=== PATIENT | female | born 1980 | race Caucasian/White ===

== ENCOUNTER 2020-09-23 14:11 | Emergency (ER) | payer OTHER, SELFPAY ==
--- NOTE | 2020-09-23 14:20 | ED.FEMALEGU ---
HPI - Female Genitourinary General Chief complaint: Urogenital-Female Stated complaint: uti Time Seen by Provider: 09/23/20 14:20 Source: patient and RN notes reviewed Mode of arrival: ambulatory Limitations: no limitations History of Present Illness HPI Narrative: 40-year-old female presents to the [facility] with urinary symptoms. Patient states that she has had abnormal smelling urine and its been cloudy. States she has had external burning. Denies frequency or urgency. Denies any flank pain, CVA tenderness, abdominal pain, nausea, vomiting or diarrhea. Denies any fevers. Denies any chances of a STD. MD elicited complaint: UTI Related Data Allergies Allergy/AdvReac Type Severity Reaction Status Date / Time doxycycline Allergy Unknown RASH Verified 09/23/20 14:33 Review of Systems Review of Systems: All systems reviewed & are unremarkable except as noted in HPI and below Constitutional: Constitutional: Reports no additional constitutional complaints, Denies chills and Denies fatigue Eyes: Eyes: Reports no additional eye complaints ENT: Reports system reviewed and no additional complaints, except as documented and Denies sore throat Cardiovascular: Cardiovascular: Reports no additional cardiovascular complaints and Denies chest pain Respiratory: Respiratory: Reports no additional respiratory complaints, Denies cough, Denies dyspnea and Denies wheezing Gastrointestinal: Gastrointestinal: Reports no additional gastrointestinal complaints, Denies abdominal pain, Denies nausea and Denies vomiting Genitourinary: Genitourinary: Reports as per HPI, Denies nocturia, Reports dysuria, Denies pelvic pain, Denies flank pain, Denies urinary incontinence and Denies vaginal discharge Musculoskeletal: Musculoskeletal: Reports no additional musculoskeletal complaints, Denies back pain, Denies arthralgias, Denies joint swelling and Denies muscle cramps Integumentary/Breasts: Skin/Breast: Reports system reviewed and no additional complaints, except as docu Neurologic: Reports system reviewed and no additional complaints, except as documented Psychiatric: Psychiatric: Reports no additional psychiatric complaints Allergic/Immunologic: Allergic/Immunologic: Reports no additional allergic/immunologic complaints, Denies lip swelling, Denies throat swelling, Denies tongue swelling and Denies wheezing PMFSH Surgical History Surgical History History of orthopedic surgery Social History Social History Gender identity (if verbalized by the patient): Female Comments At the time of my signature, I reviewed and agree with the nursing past medical, surgical, social, and family history. There is no relevant family history pertinent to the patient complaint. Exam Const: General: healthy appearing, no acute distress and alert Nutritional Appearance: well nourished Orientation/consciousness: patient oriented x3 Limitations: no limitations HENMT: Head: normal to inspection Eyes: General: appearance normal, both eyes and all related structures Conjunctivae: conjunctivae normal Pupils: Equal, round and reactive pupils present Neck: Neck: normal visual inspection, no lymphadenopathy and no meningeal signs Chest: Chest palpation & inspection: normal inspection of the chest and abnormal inspection of the chest Resp: Effort & Inspection: normal respiratory effort and no use of accessory muscles Auscultation: clear to auscultation bilaterally, no crackles, no rales, no rhonchi and no wheezes Cardio: Rate: regular rate Rhythm: regular rhythm Back/Spine/Pelvis: Back: no CVA tenderness Skin: General skin exam: normal color Rashes: no rashes Wounds: no wounds Neuro: General: patient oriented x3, moves all extremities, no meningeal signs and no focal motor deficits Speech: normal speech Gait exam (Neuro): Normal gait present Extrem: General:
[2020-09-23 14:21] VITALS: BP 110/76; PULSE 94; RESP 16; TEMP 36.3; O2SAT 99
== END 2020-09-23 14:38 | disposition home or self-care (01) ==
PROVIDERS: Emergency Provider Nurse Practitioner
DX: R30.0 Dysuria (principal)
CPT/HCPCS: 81003; 87086; 87088; 99213; G0463

== ENCOUNTER 2020-12-15 10:56 | Emergency (ER) | payer OTHER, SELFPAY ==
[2020-12-15 11:06] VITALS: BP 99/70; PULSE 85; RESP 16; TEMP 36.9; O2SAT 98
--- NOTE | 2020-12-15 11:18 | ED.URI ---
HPI - URI/Sore Throat General Chief Complaint: Upper Respiratory Infection Stated Complaint: sinus infection Time Seen by Provider: 12/15/20 11:18 Source: patient Mode of arrival: ambulatory Limitations: no limitations History of Present Illness HPI Narrative: Julianne Engel is a 40 yo female with no PMH who [facility] with complaints of ear pain on the right throat pain headache congestion and generally just not feeling well since Friday she did do a rapid test from [employer] or [facility] at home and that was negative. She has been feverish and just not getting better over last 5 days Related Data Allergies Allergy/AdvReac Type Severity Reaction Status Date / Time doxycycline Allergy Unknown RASH Verified 09/23/20 14:33 Review of Systems Review of Systems: CONSTITUTIONAL: Possible fever, has chills, sweats. EYES: Denies visual changes, redness, discharge. ENT: Denies rhinorrhea, has congestion, has sore throat, right otalgia. CARDIOVASCULAR: Denies chest pain, palpitations, edema. RESPIRATORY: Denies dyspnea, wheezing, has dry cough GASTROINTESTINAL: Denies abdominal pain, nausea, vomiting, diarrhea. GENITOURINARY: Denies dysuria, hematuria, abnormal discharge SKIN: Denies rash or itching. NEUROLOGIC: Denies numbness, or focal weakness. PSYCHIATRIC: Denies anxiety or depression. [facility] Past Medical History Medical History (Updated 12/15/20 @ 11:54 by Gina Moore CNP) No acute medical problems Surgical History Surgical History History of orthopedic surgery Social History Social History (Updated 12/15/20 @ 11:31 by Gina Moore CNP) Alcohol intake: current Gender identity (if verbalized by the patient): Female Comments At time of signature, I agree with nursing past medical, surgical, social and family history. There is no relevant family history pertinent to the presenting complaint. Exam Narrative: GENERAL: This is a well-nourished, well-developed patient, in moderate distress. Laying on stretcher states feels terrible HEAD: normocephalic, atraumatic. EYES: Sclera clear/white. Vision is grossly intact. EARS: External ears normal, auditory canals clear and without drainage, TMs normal without perforation. Hearing grossly intact. NOSE: External nose normal without nasal discharge, nares without redness, no rhinorrhea. THROAT: Mucous membranes moist, posterior pharynx NECK: Neck supple, non-tender CARDIOVASCULAR: Regular rate and rhythm without murmurs, gallops, or rubs. RESPIRATORY: Clear to auscultation. Breath sounds equal bilaterally. No wheezes, rales, or rhonchi. GASTROINTESTINAL: Abdomen soft, non-tender, SKIN: warm, intact with no suspicious lesions or rash, good texture and turgor. NEURO: awake, alert, and oriented to person, place and time. There were no obvious focal neurologic abnormalities. Steady gait EXTREMITIES: Normal range of motion. BACK: Nontender without deformity Course Course Emergency Course: Patient comes in with generalized upper respiratory symptoms including fever malaise headache runny nose and ear pain She has done a Covid test at home but will we will repeat that today as well as flu and strep-all 3 tests are negative Patient will be treated with steroids, next , , Ibuprofen 800 mg 3 times daily as needed, tessalon and mucinex Vital Signs Vital signs: Vital Signs Temperature 98.4 F 12/15/20 11:06 Pulse Rate 85 12/15/20 11:06 Respiratory Rate 16 12/15/20 11:06 Blood Pressure 99/70 L 12/15/20 11:06 Pulse Oximetry 98 12/15/20 11:06 Temperature 98.4 F 12/15/20 11:06 Pulse Rate 85 12/15/20 11:06 Respiratory Rate 16 12/15/20 11:06 Blood Pressure 99/70 L 12/15/20 11:06 Pulse Oximetry 98 12/15/20 11:06 MDM - URI/Sore Throat Differential Diagnosis Differential diagnosis: Likely upper respiratory infection, sinusitis, viral infection, influenza, pharyngitis and other
== END 2020-12-15 12:08 | disposition home or self-care (01) ==
PROVIDERS: Emergency Provider Nurse Practitioner
DX: J06.9 Acute upper respiratory infection, unspecified (principal); Z20.822 Contact with and (suspected) exposure to COVID-19
CPT/HCPCS: 87081; 87426; 87804; 87880; 99213; C9803; G0463

== ENCOUNTER 2021-07-01 15:33 | Emergency (ER) | payer OTHER, SELFPAY ==
--- NOTE | 2021-07-01 15:34 | ED.UPPEXIN ---
HPI - Extremity Injury (Upper) General Chief Complaint: Extremity Injury, Upper Stated Complaint: left shoulder pain Time Seen by Provider: 07/01/21 15:34 Source: patient Mode of arrival: ambulatory Limitations: no limitations History of Present Illness HPI narrative: Ms. Salgado is a 41-year-old female patient presenting to the clinic today with complaints of left shoulder pain x 2-3 days. She reports no known injury however she has pain into the collarbone to the anterior and posterior shoulder, denies any numbness or tingling. Patient has a history of having this shoulder dislocated. Related Data Allergies Allergy/AdvReac Type Severity Reaction Status Date / Time doxycycline Allergy Unknown RASH Verified 09/23/20 14:33 Review of Systems Review of Systems: Pertinent positives per HPI. Patient denies any fever, chills, rash, headache, visual changes, dizziness, cough, runny nose, sore throat, shortness of breath, chest pain, palpitations, nausea, vomiting, diarrhea, constipation, abdominal pain, or any urinary issues. [facility] Past Medical History Medical History No acute medical problems Surgical History Surgical History History of orthopedic surgery Social History Social History Alcohol intake: current Gender identity (if verbalized by the patient): Female Comments At the time of my signature, I reviewed and agree with the nursing past medical, surgical, social, and family history. There is no relevant family history pertinent to the patient complaint. Exam Narrative: General: Well-developed, well nourished, in no apparent distress Head: Normocephalic, atraumatic. Cardio: Regular rate and rhythm, s1 and s2 normal, no murmur appreciated. Resp: Clear to auscultation bilaterally, no rhonchi, rales, wheezing or rubs. Musculoskeletal: No deformity, non-tender to palpation, pain with raising arm above head laterally and anteriorly, limited posterior reach due to pain and is having spasming near the rhomboid musculature, negative drop arm test, negative empty can and full can test, muscle strength strong and equal, bilateral handgrip strong and equal, peripheral pulse strong, no edema, no cyanosis, normal gait and station Course Course Emergency Course: Portions of this record may have been created with voice recognition software. Level of Care: Express Care Visit Vital Signs Vital signs: Vital Signs Temperature 36.7 C 07/01/21 15:39 Pulse Rate 73 07/01/21 15:39 Respiratory Rate 18 07/01/21 15:39 Blood Pressure 123/77 07/01/21 15:39 Pulse Oximetry 100 07/01/21 15:39 Temperature 36.7 C 07/01/21 15:39 Pulse Rate 73 07/01/21 15:39 Respiratory Rate 18 07/01/21 15:39 Blood Pressure 123/77 07/01/21 15:39 Pulse Oximetry 100 07/01/21 15:39 Vital signs reviewed MDM - Extremity Injury (Upper) MDM Narrative Medical decision making narrative: At the time of assessment patient is resting comfortably on the exam table. She reports pain to the left anterior collarbone/chest wall and pain to the left posterior collarbone chest wall and into the shoulder. No deformity noted in the shoulder and is able to move joint appropriately however she has pain with raising her arm above her head and attempting to do a posterior reach. Shoulder is easily palpable without pain and is in place in the joint. I suspect the patient has a muscle strain to the shoulder/collarbone musculature. Shoulder exercises discussed with patient. We will give her an arm sling and give her prescription for prednisone and a muscle relaxer. She was given Toradol 60 mg IM in the clinic today. Discharge instructions were reviewed with patient she voiced understanding Discharge Plan Discharge Clinical Impression: Muscle strain of left shoul
[2021-07-01 15:39] VITALS: BP 123/77; PULSE 73; RESP 18; TEMP 36.7; O2SAT 100
[2021-07-01] MEDS: KETOROLAC (*BKC) 60 MG/2 ML VIAL IM (15:59)
== END 2021-07-01 16:26 | disposition home or self-care (01) ==
LOC: EXPCOLL 15:36
PROVIDERS: Emergency Provider Nurse Practitioner Family
DX: S46.912A Strain of unspecified muscle, fascia and tendon at shoulder and upper arm level, left arm, initial encounter (principal); X58.XXXA Exposure to other specified factors, initial encounter
CPT/HCPCS: 96372; 99213; A4565; G0463; J1885

== ENCOUNTER 2022-07-28 10:02 | Emergency (ER) | payer OTHER, SELFPAY ==
[2022-07-28 10:02] VITALS: BP 122/71; PULSE 75; RESP 16; TEMP 36.4; O2SAT 100
--- NOTE | 2022-07-28 10:18 | ED.GENADULT ---
HPI - General Adult General Chief complaint: Allergic Reaction Stated complaint: tooth ache Time Seen by Provider: 07/28/22 10:06 History of Present Illness HPI narrative: Julianne Salgado is a 42 y/o female who presents with reports of being on amoxicillin for 3 days for a tooth infection and she started to notice itching to her left hand/left arm yesterday. She slept with it elevated on a pillow and she woke up with her arm swollen and more irritated. She reports similar allergic reaction to doxycycline and she thinks she might be allergic to amoxicillin now too. Denies shortness of breath/ difficulty swallowing/ tongue swelling/ throat swelling. She reports her toothache is feeling better today. Related Data Allergies Allergy/AdvReac Type Severity Reaction Status Date / Time amoxicillin Allergy Mild itching Verified 07/28/22 10:28 doxycycline Allergy Unknown RASH Verified 07/28/22 10:28 Review of Systems Review of Systems: CONSTITUTIONAL: Denies fever, chills, or sweats. EYES: Denies visual changes, redness, or discharge. ENT: Denies rhinorrhea, congestion, sore throat toothache to the right lower that is improving since being on amoxicillin for the past 3 days. CARDIOVASCULAR: Denies chest pain, palpitations, or edema. RESPIRATORY: Denies cough or dyspnea. GASTROINTESTINAL: Denies abdominal pain, nausea, vomiting, or diarrhea. GENITOURINARY: Denies dysuria or hematuria. SKIN: Denies rash or itching. MUSCULOSKELETAL: left arm itching/ irritation/ swelling NEUROLOGIC: Denies headache, numbness, dizziness, or weakness. PSYCHIATRIC: Denies anxiety or depression. PMFSH Past Medical History Medical History No acute medical problems Surgical History Surgical History History of orthopedic surgery Social History Social History Alcohol intake: current Gender identity (if verbalized by the patient): Female Exam Narrative: GENERAL: Well-appearing, well-nourished, and in no acute distress. HEAD: Normocephalic, atraumatic. EYES: PERRLA and EOMI. ENT: Nares clear, no rhinorrhea or epistaxis. Mucous membranes moist. Oropharynx without tonsillar hypertrophy exudate or other lesions. NECK: Supple. No adenopathy or masses. No carotid bruits or JVD CHEST: Clear to auscultation. No respiratory distress. No wheezes rales or rhonchi HEART: Regular rate and rhythm. No murmur heard. Normal peripheral pulses. ABDOMEN: Soft, nontender, nondistended, normal active bowel sounds. EXTREMITIES: Normal range of motion. No edema. SKIN: Warm, dry, Left arm noted to have swelling/ irritation/erythema/ pulses present and strong/ normal cap refill. NEURO: No focal deficits. Alert and oriented x3. PSYCH: Normal mood and affect. Course Vital Signs Vital signs: Vital Signs Temperature 36.4 C L 07/28/22 10:02 Pulse Rate 75 07/28/22 10:02 Respiratory Rate 16 07/28/22 10:02 Blood Pressure 122/71 07/28/22 10:02 Pulse Oximetry 100 07/28/22 10:02 Oxygen Delivery Room Air 07/28/22 10:02 Temperature 36.4 C L 07/28/22 10:02 Pulse Rate 75 07/28/22 10:02 Respiratory Rate 16 07/28/22 10:02 Blood Pressure 122/71 07/28/22 10:02 Pulse Oximetry 100 07/28/22 10:02 Oxygen Delivery Room Air 07/28/22 10:02 Vitals reviewed by me. Medical Decision Making MDM Narrative Medical decision making narrative: On exam pt is resting on stretcher in no acute distress. RR even unlabored Lung sounds clear - sating 100% on RA> She is noted to have swelling to her left arm/ left hand - pulses present/ color normal for patient. She was out in the sun yesterday and did get a little burnt. Patient reports she had similar reaction of itching with doxycycline - the only new medication she has had is amoxicillin Concern for : allergic reaction/ cellulitis/
[2022-07-28] MEDS: LORATADINE 10 MG TABLET PO (10:29)
[2022-07-28] MEDS: FAMOTIDINE 20 MG TABLET PO (10:29)
[2022-07-28] MEDS: predniSONE 40 MG, predniSONE 10 MG 50 MG PO (10:29)
== END 2022-07-28 12:01 | disposition home or self-care (01) ==
PROVIDERS: Emergency Provider Nurse Practitioner Family; PCP Nurse Practitioner Family
DX: L50.0 Allergic urticaria (principal); T36.0X5A Adverse effect of penicillins, initial encounter; K04.7 Periapical abscess without sinus
CPT/HCPCS: 99283; A9270; J7512

== ENCOUNTER 2022-12-12 11:04 | Outpatient (CLI) | payer OTHER, SELFPAY ==
--- NOTE | ~2022-12-12 | MMUS_ITS ---
EXAMINATION: MM diag hao implant BI w renee, US breast RT limited HISTORY: Right breast pain TECHNIQUE: Craniocaudal, mediolateral, and mediolateral oblique 3-D tomosynthesis images with implant displacement of the breasts were performed and synthetic 2-D images were generated. Craniocaudal, m ediolateral oblique, and mediolateral views of the breasts without implant displacement were obtained using full field digital mammography. CAD analysis was submitted and interpreted. High resolution li mited right breast ultrasound was performed. COMPARISON: 04/03/2016 BREAST PARENCHYMAL COMPOSITION: There are scattered areas of fibroglandular density. FINDINGS: MAMMOGRAPHIC FINDINGS: No suspicious mass, calcification, or architectural distortion are identified in either breast to sug gest malignancy. There has been no suspicious interval change. No mammographic correlate is identifie d for the patient's reported right breast pain. ULTRASOUND: There is a 1.2 x 0.4 cm oval, circumscribed, parallel, hypoechoic mass with posterior acoustic enhanc ement and no internal vascularity at the 10:00 location, 7 cm from the nipple. There are multiple sim ple cysts in the upper outer quadrant of the right breast. Benign appearing right axillary lymph node s are noted. IMPRESSION: 1. No specific mammographic or sonographic correlate is identified for the patient's reported right b reast pain. Further evaluation at this time should be based on clinical assessment. Continued follow- up physical examination is recommended. 2. Recommend 6 month follow-up targeted ultrasound for probably benign sonographically detected mass at the 10:00 location 7 cm from the nipple. BI-RADS category 3, probably benign findings. Reviewed, dictated and finalized at location A. IMPRESSION: 1. No specific mammographic or sonographic correlate is identified for the jefe ent's reported right breast pain. Further evaluation at this time should be bas ed on clinical assessment. Continued follow-up physical examination is recommen ded. 2. Recommend 6 month follow-up targeted ultrasound for probably benign sonograp hically detected mass at the 10:00 location 7 cm from the nipple. BI-RADS category 3, probably benign findings.
== END 2022-12-12 11:05 | disposition home or self-care (01) ==
PROVIDERS: PCP Nurse Practitioner Family; Visit Provider Nurse Practitioner Family
DX: R92.8 Other abnormal and inconclusive findings on diagnostic imaging of breast (principal)
CPT/HCPCS: 76642; 77062; 77066; G0279

== ENCOUNTER 2023-09-17 12:55 | Emergency (ER) | payer OTHER, SELFPAY ==
--- NOTE | ~2023-09-17 | XR_ITS ---
EXAMINATION: XR foot RT min 3V DATE: 09/17/2023 13:08 INDICATION: Right foot pain and dorsal swelling post injury TECHNIQUE: Dorsoplantar, two oblique and lateral views of the right foot were obtained. COMPARISON: None. FINDINGS: Alignment is normal. No fracture. 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 Moderate size plantar calcaneal spur. Soft tis sues are unremarkable. IMPRESSION: 1. No acute osseous abnormality. Reviewed, dictated and finalized at location A.
--- NOTE | ~2023-09-17 | XR_ITS ---
XR ankle RT min 3V Ordering provider: Myrtle Méndez APRN History: . right ankle pain, swelling, patient states it popped . Comparison: None. FINDINGS: BONES: No acute fracture or dislocation. Osteochondral defect seen in the medial aspect of the talus bone. Osteoid osteoma is less likely. Calcaneal spur. JOINT SPACES: Normal. SOFT TISSUES: Normal. IMPRESSION: No acute osseous abnormality of the right ankle. Osteochondral defect seen in the medial aspect of the talus dome. Reviewed, dictated and finalized at location A.
[2023-09-17 12:57] VITALS: BP 114/69; PULSE 73; RESP 20; TEMP 36.4; O2SAT 100
--- NOTE | 2023-09-17 14:33 | ED.GENADULT ---
HPI - General Adult General Chief complaint: Extremity Injury, Lower Stated complaint: right foot pain Time Seen by Provider: 09/17/23 13:19 History of Present Illness HPI narrative: Julianne Salgado is a 43 y/o female who presents with reports stepping off of the pool table and she felt a pop to the top of her right ankle and having pain with ambulation Related Data Allergies Allergy/AdvReac Type Severity Reaction Status Date / Time amoxicillin Allergy Mild itching Verified 09/17/23 12:58 doxycycline Allergy Unknown RASH Verified 09/17/23 12:58 Review of Systems Review of Systems: All systems reviewed & are unremarkable except as noted in HPI and below PMFSH Past Medical History Medical History No acute medical problems Surgical History Surgical History History of orthopedic surgery Social History Social History Alcohol intake: current Gender identity (if verbalized by the patient): Female Exam Narrative: GENERAL: Well-appearing, well-nourished, and in no acute distress. HEAD: Normocephalic, atraumatic. EYES: PERRLA and EOMI. ENT: Nares clear, no rhinorrhea or epistaxis. Mucous membranes moist. Oropharynx without tonsillar hypertrophy exudate or other lesions. NECK: Supple. No adenopathy or masses. No carotid bruits or JVD CHEST: Clear to auscultation. No respiratory distress. No wheezes rales or rhonchi HEART: Regular rate and rhythm. No murmur heard. Normal peripheral pulses. ABDOMEN: Soft, nontender, nondistended, normal active bowel sounds. EXTREMITIES: Normal range of motion. + swelling to the right ankle and swelling noted to the medial / lateral ankle and the proximal dorsum aspect of the right foot, pedal pulses intact, + pain with palpation to the medial ankle SKIN: Warm, dry, no rash. NEURO: No focal deficits. Alert and oriented x3. PSYCH: Normal mood and affect. Course Vital Signs Vital signs: Vital Signs Temperature 36.4 C 09/17/23 12:57 Pulse Rate 73 09/17/23 12:57 Respiratory Rate 20 09/17/23 12:57 Blood Pressure 114/69 09/17/23 12:57 Pulse Oximetry 100 09/17/23 12:57 Temperature 36.4 C 09/17/23 12:57 Pulse Rate 73 09/17/23 12:57 Respiratory Rate 20 09/17/23 12:57 Blood Pressure 114/69 09/17/23 12:57 Pulse Oximetry 100 09/17/23 12:57 Medical Decision Making MDM Narrative Medical decision making narrative: Right ankle Normal range of motion. + swelling to the right ankle and swelling noted to the medial / lateral ankle and the proximal dorsum aspect of the right foot, pedal pulses intact, + pain with palpation to the medial ankle Concern for fracture vs Sprain Will check XR ,she denies wanting anything for pain XR Foot X-Ray 09/17/23 13:23 IMPRESSION: 1. No acute osseous abnormality. Ankle X-Ray 09/17/23 14:35 IMPRESSION: No acute osseous abnormality of the right ankle. Right ankle shows Osteochondral defect will d/c home with obie wrap / crutches / DIAL therapy orthopedic referral Return precautions provided Vital Signs Vital Signs: Vital Signs Temperature 36.4 C 09/17/23 12:57 Pulse Rate 73 09/17/23 12:57 Respiratory Rate 20 09/17/23 12:57 Blood Pressure 114/69 09/17/23 12:57 Pulse Oximetry 09/17/23 12:57 Temperature 36.4 C 09/17/23 12:57 Pulse Rate 73 09/17/23 12:57 Respiratory Rate 20 09/17/23 12:57 Blood Pressure 114/69 09/17/23 12:57 Pulse Oximetry 09/17/23 12:57 vitals reviewed by me. Lab Data Lab results reviewed: Yes I reviewed the patient's lab results. Imaging Data Attestation: I personally reviewed and interpreted this imaging study as follows: My impression: Impressions Foot X-Ray 09/17/23 13:23
== END 2023-09-17 15:36 | disposition home or self-care (01) ==
PROVIDERS: Emergency Provider Nurse Practitioner Family; PCP Nurse Practitioner Family
DX: M21.969 Unspecified acquired deformity of unspecified lower leg (principal); S93.401A Sprain of unspecified ligament of right ankle, initial encounter; S96.911A Strain of unspecified muscle and tendon at ankle and foot level, right foot, initial encounter; X50.0XXA Overexertion from strenuous movement or load, initial encounter
CPT/HCPCS: 73610; 73630; 99283

== ENCOUNTER 2023-11-24 11:43 | Outpatient (CLI) | payer OTHER, SELFPAY ==
--- NOTE | ~2023-11-24 | MMUS_ITS ---
EXAMINATION: MM diag hao implant BI w renee, US breast BI limited HISTORY: Bilateral pain/palpable concern TECHNIQUE: 3-D tomosynthesis images of the bilateral breasts were performed and synthetic 2-D images were generated. CAD analysis was submitted and interpreted. High resolution limited bilateral breast ultrasound was performed. COMPARISON: 12/12/2022, 04/03/2016 BREAST PARENCHYMAL COMPOSITION:Dense: The breasts are extremely dense, which lowers the sensitivity o f mammography. FINDINGS: MAMMOGRAPHIC FINDINGS: Parenchymal pattern of the breasts is unremarkable. No suspicious mass lesion or distortion seen. David ateral breast implants are present. No suspicious parenchymal calcifications. ULTRASOUND: At the 10:00 position right breast, 7 cm from the nipple, there is a stable 1.0 x 0.9 x 0.4 cm wire t wang tall roughly ovoid mildly heterogeneous solid mass with posterior through transmission. This is l ikely benign, stable from prior exam. At the left breast area of concern, involving the 8:00, 9:00, and 10:00 positions, no sonographic abn ormality seen. No solid or cystic lesion evident in these regions. IMPRESSION: No mammographic evidence for malignancy. Stable 10 mm mass at the 10:00 position right breast, similar to the nipple. No sonographic correlate seen at the left breast area of concern from the 8:00-10:00 positions. BI-RADS Category 2: Benign finding(s). Reviewed, dictated and finalized at location . IMPRESSION: No mammographic evidence for malignancy. Stable 10 mm mass at the 10:00 position right breast, similar to the nipple. No sonographic correlate seen at the left breast area of concern from the 8:00- 10:00 positions. BI-RADS Category 2: Benign finding(s).
== END 2023-11-24 11:44 | disposition home or self-care (01) ==
PROVIDERS: PCP Nurse Practitioner Family; Visit Provider Nurse Practitioner Family
DX: R92.8 Other abnormal and inconclusive findings on diagnostic imaging of breast (principal)
CPT/HCPCS: 76642; 77062; 77066; G0279

== ENCOUNTER 2024-11-18 12:50 | Outpatient (CLI) | payer OTHER, SELFPAY ==
--- OUTSIDE RECORDS SUMMARY | 2024-11-18 14:31 | XMS_ITS | Clinical Summary ---
Author Organization [facility] Address [address], [address] [address] Phone Care Team Providers Care Teaching Manager Name Role Phone Familia Mariano MD Primary Care Provider [phone] Chris Esparza DO Unavailable [phone] Allergies No known active allergies Medications polyethylene glycol (MIRALAX) Powder Mix the entire bottle with 64 oz of a clear liquid. Use as directed by the office for colonoscopy prep. 255 g 0 6 Active Bismuth 262 MG Chewable Tablet 3 PO QID FOR 10 DAYS 120 Tab 0 6 Active metroNIDAZOLE (FLAGYL) 250 MG Tablet TAKE 1.5 TABS PO QID FOR 10 DAYS 60 Tab 0 6 Active doxycycline hyclate (VIBRAMYCIN) 100 MG Capsule TAKE ONE TAB BID FOR 10 DAYS 20 Cap 0 6 Active omeprazole (PRILOSEC) 20 MG CAPSULE DELAYED RELEASE TAKE ONE BID 20 Cap 0 6 Active polyethylene glycol (MIRALAX) Powder Use entire 255g bottle with 64oz of clear liquid as directed for colonoscopy prep. 255 g 0 6 Active Family History Medical History Relation Name Comments Colon Cancer Father Lung Cancer Mother Relation Name Status Comments Father Mother Social History Tobacco Use Types Packs/Day Years Used Date Smoking Tobacco: Former Cigarettes 1 3 Smokeless Tobacco: Never Alcohol Use Standard Drinks/Week Comments No 0 (1 standard drink = 0.6 oz pur e alcohol) Comments Unknown Sex and Gender Information Value Date Recorded Sex Assigned at Not on file Legal Sex Female 3:24 PM CDT Gender Identity Not on file Sexual Orientation Not on file Plan of Treatment Health Maintenance Due Date Last Done Comments Hepatitis C Virus (HCV) Screening 1981 TdaP Immunization 1981 Hepatitis B Immunization (1 of 3 - 19+ 3-dose series) 2000 Pap Smear 2002 Human Papillomavirus (HPV) Immunization (1 - 3-dose SCDM series) 2008 Cervical Cancer Screening (CCS) 06/01/2011 HPV/Cotest 06/01/2011 SARS-COV-2 Immunization (1 - 2023- season) 2023 Influenza Immunization (#1) 2024 Respiratory Syncytial Virus (RSV) Immunization (Adult) (1 - 1-dose 75+ series) 2056 Meningococcal Immunization (ACWY) Aged Out No longer eligible based on patient's age to complete this topic Pneumococcal Immunization Combined Aged Out No longer eligible based on patient's age to complete this topic Rotavirus Immunization Aged Out No lo nger eligible based on patient's age to complete this topic Care Teams Teaching Manager Relationship Specialty Start Date End Date Familia Mariano MD [address] [place] [address] PCP - General Obstetrics & Gynecology 10/31/15 Chris Esparza DO [address] [place] [address] Gastroenterology 10/31/15
== END 2024-11-18 12:51 | disposition home or self-care (01) ==
PROVIDERS: PCP Nurse Practitioner Family; Visit Provider Obstetrics & Gynecology
DX: Z01.818 Encounter for other preprocedural examination (principal); N93.9 Abnormal uterine and vaginal bleeding, unspecified
CPT/HCPCS: 36415; 86850; 86900; 86901

== ENCOUNTER 2024-11-26 05:45 | Day surgery (SDC) | payer OTHER, SELFPAY ==
[2024-11-16 12:46] VITALS: BMI 28.7
--- NOTE | 2024-11-16 12:48 | PC.NURSE ---
Report to the Outpatient Waiting Room, entrance under the green pavilion located off [facility], at time __6:00 am on date _[phone] . Planned Procedure Time: ___7:30 am .? Time changes happen often and if your time is changed the preop area will call you the afternoon before. - You and your visitor will be asked to self-screen and do not enter if you have any COVID symptoms. Please call surgeon if you need to reschedule. - A mask is optional within the hospital at this time. Patients may have clear liquids (water, carbonated beverages, clear teas, apple juice) until 3 hours prior to surgery with a maximum of 20 ounces. - No food from midnight until time of surgery and no smoking, or chewing tobacco (or any form of nicotine). No chewing gum, candy or mints. - Take only the following medications with a SIP of water on the morning of surgery: ____You may take your acyclovir if needed DO NOT STOP ANY OF YOUR OTHER PRESCRIPTION MEDICATIONS PRIOR TO SURGERY EXCEPT THE FOLLOWING Please no make-up, nail romansh, hairspray, perfume, deodorant, or body powder the day of surgery.? No jewelry (including any body piercings) or valuables the day of surgery, leave them at home.? Please take a shower or bath the night before, or the morning of, surgery with an antibacterial soap.? Wear comfortable, loose fitting clothing.? - Jewelry must be removed prior to entering the operating room.? Rings and piercings that are not removed may be cut off. - The hospital will not accept responsibility for valuables.? - Please leave all valuables, including medications, at home the day of surgery. If you are going home after surgery, a licensed ups driver must drive you home.? - NO public transportation without another adult if you receive anesthesia. - We recommend that an adult stay with you for 24 hours following discharge. - We also recommend that you do not drive, make important decision, drink alcoholic beverages, or take any drugs that were not prescribed by your health care provider for at least 24 hours after your discharge time. Follow any additional instructions given to you from your surgeon. Telephone instructions given to patient (Julianne)___and asked if any additional questions and then verbalized understanding. Patient advised to call surgeon office or pre surgery nurse liaison [phone] if any additional questions.
--- NOTE | 2024-11-24 07:22 | P.HP_ITS ---
H&P: HPI History of Present Illness Date/Time: 11/24/24 07:22 Chief Complaint: Pelvic pain with bilateral ovarian cysts Narrative: 44 female laparoscopic bilateral destruction ovarian cyst and expected lysis of adhesions she has pelvic pain discomfort she has bilateral ovarian cysts they were very nature she continues have severe pain and dyspareunia on aspirin laparoscopy risks and benefits reviewed not exclusive of aspiration pneumonia, bleeding, transfusion, perforation injury to bowel, bladder, ureters, or other internal organs with need for open laparotomy. She received the ACOG handout laparoscopy. She had all questions answered. She asked to proceed. Review of Systems Review of Systems: All systems reviewed & are unremarkable except as noted in HPI and below PMFSH Past Medical History Medical History No acute medical problems Surgical History Surgical History History of orthopedic surgery Social History Social History Smoking packs per day: 1.5 Smoking cigarettes per day: 30.0 Years smoked: 2 Smoking pack-years: 3.00 Smoking status: Former smoker Tobacco type: cigarettes Second hand tobacco smoke exposure: No Alcohol intake: current Substance use type: does not use Last use: 2000 Living arrangements: with family Gender identity (if verbalized by the patient): Female Meds Home Medications and Allergies Home Medications ?Medication ?Instructions ?Recorded ?Confirmed ?Type acyclovir 200 mg capsule 200 mg PO DAILY PRN cold sor es 11/16/24 11/17/24 History Allergies Allergy/AdvReac Type Severity Reaction Status Date / Time doxycycline Allergy Unknown RASH Verified 11/16/24 12:30 Exam Const: General: cooperative, healthy appearing, comfortable and well groomed Nutritional Appearance: average body habitus Orientation/consciousness: oriented to person, oriented to place and oriented to time HENMT: Head: normal to inspection Resp: Effort & Inspection: normal respiratory effort Cardio: Rate: regular rate Rhythm: regular rhythm Heart sounds: S1 normal heart sound present and S2 normal heart sound present GI: Inspection: normal to inspection : External Female Exam: normal external appearance Speculum Exam - Vagina: normal appearance of the vagina Speculum Exam - Cervix: normal appearance of the cervix Bimanual exam- vagina & uterus: non-tender Bimanual Exam- Adnexa, other: tender bilaterally Assessment and Plan Assessment and plan (1) Pelvic pain: Code(s): R10.2 - Pelvic and perineal pain Status: Acute (2) Ovarian cyst: Code(s): N83.209 - Unspecified ovarian cyst, unspecified side Status: Acute Plan Proceed with laparoscopy and destruction bilateral ovarian cysts unlikely oophorectomy as
--- OUTSIDE RECORDS SUMMARY | 2024-11-24 14:23 | XMS_ITS | Encounter Summary ---
Author Organization [facility] Address [facility] [place] [address] Care Team Providers Care Product Designer Name Role Phone Leigha Gomez Primary Care Provider [phone] Reason for Referral * Imaging (Routine) - Closed Specialty Diagnoses / Procedures Referred By Cinthya myrick Referred To Contact RADIOLOGY Diagnoses Encounter for screening mammogram for breast cancer Presence of bilateral breast implant History of abnormal mammogram Procedures MRI BREAST FANTASMA WWO CON Leigha Comer FNP [address] [place] [address] Phone: tel: fax: Referral ID Status Reason Start Date Expiration Date Visits Re quested Visits Authorized [id number] Closed 10/28/2024 10/28/2025 1 1 Reason for Visit * Imaging (Routine) - Closed Specialty Diagnoses / Procedures Referred By Cinthya myrick Referred To Contact RADIOLOGY Diagnoses Encounter for screening mammogram for breast cancer Presence of bilateral breast implant History of abnormal mammogram Procedures MRI BREAST FANTASMA WWO CON Leigha Comer FNP [address] [place] [address] Phone: tel: fax: Referral ID Status Reason Start Date Expiration Date Visits Re quested Visits Authorized [id number] Closed 10/28/2024 10/28/2025 1 1 Encounter Details Date Type Department Care Team (Latest Contact Info) Description 11/24/2024 2:23 PM CDT - 11/24/2024 11:59 PM CDT Hospital Encounter [facility] [address] [facility] [address] Leigha Gomez FNP [address] [place] [address] Arrived Discharge Disposition: Home or Self Care (Routine Discharge) Social History Tobacco Use Types Packs/Day Years Used Date Smoking Tobacco: Former Cigarettes Q uit: 10/08/2000 Smokeless Tobacco: Never Alcohol Use Standard Drinks/Week Comments Not Currently 0 (1 standard drink = 0.6 oz pur e alcohol) PHQ-2 Answer Date Recorded Patient Health Questionnaire-2 Score 0 12/30/2022 Comments No Sex and Gender Information Value Date Recorded Sex Assigned at Female 10/28/2024 2:10 PM CDT Legal Sex Female 9:11 AM CDT Gender Identity Female 12/08/2021 9:19 AM CDT Sexual Orientation Not on file documented as of this encounter Medications at Time of Discharge acyclovir (ZOVIRAX) 200 mg capsuleIndication s:Recurrent cold sores TAKE 4 CAPSULES BY MOUTH TWICE A DAY 80 capsule 3 06/21/2024 oxybutynin XL (DITROPAN-XL) 5 MG 24 hr tabletIndications :Overactive bladder Take 1 tablet (5 mg total) by mouth daily. 90 tablet 3 10/28/2024 documented as of this encounter Plan of Treatment Upcoming Encounters Date Type Department Care Team (Late st Contact Info) Description 01/11/2025 11:00 AM MARINE RESOURCE ECONOMIST Office Visit [facility] [address] [place] [address] Pat Chavez MD 3 [facility] [address] [place] [address] Pending Results Name Type Priority Associated Diagnoses Date /Time MRI BREAST FANTASMA WWO CON BIRAD MRI Routine Encounter for screening mammogram for breast cancer Presence of bilateral breast implant History of abnormal mammogram 11/24/2024 4:38 PM CDT Scheduled Orders Name Type Priority Associated Diagnoses Orde r Schedule MRI BREAST FANTASMA WWO CON BIRAD MRI Routine Encounter for screening mammogram for breast cancer Presence of bilateral breast implant History of abnormal mammogram Once for 1 Occurrences starting 11/24/2024 until 11/24/2024 documented as of this encounter Visit Diagnoses Diagnosis Encounter for screening mammogram for breast cancer Presence of bilateral breast implant History of abnormal mammogram Other specified personal history presenting hazards to health documented in this encounter Administered Medications Inactive Administered Medications - up to 3 most recent administrations Medication Order MAR Action Action Date Dose Rate Site gadoterate meglumine (DOTAREM) 10 MMOL/20ML injection 17 mL 17 mL, Intravenous, IMG once as needed, Contrast, 1 dose, Starting on Fri11/24/24 at 1638, Until Fri11/24/24 at 1638 Given 11/24/2024 4:38 PM CDT 17 mLs Right Arm documented in this encounter Additional Health Concerns Assessment Noted Time PHQ-9 Depression Total Score: 11 022 11:43 AM CDT documented as of this encounter Care Teams Product Designer Relationship Specialty Start Date End Date Leigha Gomez FNP [address] [place] [address] PCP - General Nurse Practitioner Family 12/11/21 documented as of this encounter
--- OUTSIDE RECORDS SUMMARY | 2024-11-25 10:00 | XMS_ITS | Encounter Summary ---
Author Organization [facility] Address [facility] [place] [address] Care Team Providers Care Art History Instructor Name Role Phone Leigha Gomez Primary Care Provider [phone] Reason for Referral * Imaging (Routine) - Closed Specialty Diagnoses / Procedures Referred By Cinthya myrick Referred To Contact RADIOLOGY Diagnoses SOB (shortness of breath) Procedures USE ECHOCARDIOGRAM Kin Wagner MD [address] [address] Phone: tel: fax: Referral ID Status Reason Start Date Expiration Date Visits Re quested Visits Authorized [id number] Closed 11/23/2024 02/21/2025 1 1 Reason for Visit * Imaging (Routine) - Closed Specialty Diagnoses / Procedures Referred By Cinthya myrick Referred To Contact RADIOLOGY Diagnoses SOB (shortness of breath) Procedures USE ECHOCARDIOGRAM Kin Wagner MD [address] [address] Phone: tel: fax: Referral ID Status Reason Start Date Expiration Date Visits Re quested Visits Authorized [id number] Closed 11/23/2024 02/21/2025 1 1 Encounter Details Date Type Department Care Team (Late st Contact Info) Description 11/25/2024 10:00 AM CDT Hospital Encounter [facility] [place] [address] Kin Wagner MD Three [facility]. [address] [place] [address] Arrived Social History Tobacco Use Types Packs/Day Years [...] on file documented as of this encounter Plan of Treatment Upcoming Encounters Date Type Department Care Team (Late st Contact Info) Description 01/11/2025 11:00 AM BELT MOLDER Office Visit [facility], [address] [place] [address] Pat Chavez MD 3 [facility] [address] [place] [address] Pending Results Name Type Priority Associated Diagnoses Date /Time USE ECHOCARDIOGRAM ECHO Routine SOB (shortness of breath) 11/25/2024 11:36 AM CDT Scheduled Orders Name Type Priority Associated Diagnoses Orde r Schedule USE ECHOCARDIOGRAM ECHO Routine SOB (shortness of breath) Once for 1 Occurrences starting 11/25/2024 until 11/25/2024 documented as of this encounter Visit Diagnoses Diagnosis SOB (shortness of breath) Shortness of breath documented in this encounter Additional Health Concerns Assessment Noted Time PHQ-9 Depression Total Score: 11 022 11:43 AM CDT documented as of this encounter Care Teams Art History Instructor Relationship Specialty Start Date End Date Leigha Gomez FNP [address] [place] [address] PCP - General Nurse Practitioner Family 12/11/21 documented as of this encounter
--- OUTSIDE RECORDS SUMMARY | 2024-11-25 12:00 | XMS_ITS | Encounter Summary ---
Author Organization [facility] Address [address] [place] [address] Care Team Providers Care Teacher Tutor Name Role Phone Leigha Gomez ABELINO Primary Care Provider [phone] Reason for Visit * Reason Onset Date Comments Holter Monitor 11/25/2024 * Imaging (Routine) - Closed Specialty Diagnoses / Procedures Referred By Cinthya t Referred To Contact Cardiology Diagnoses SOB (shortness of breath) Procedures CLINIC - OUTPATIENT EVENT RECORDER (ECG) UP TO 30 DAYS COMPLETE (Holter) Kin Wagner MD [facility]. [facility] [address] [place] [address] Phone: tel: fax: Referral ID Status Reason Start Date Expiration Date Visits Re quested Visits Authorized [id number] Closed 11/23/2024 02/21/2025 1 1 Encounter Details Date Type Department Care Team (Late st Contact Info) Description 11/25/2024 12:00 PM CDT Telephone [facility] [address] [place] [address] Kin Wagner MD [facility]. [facility] [address] [place] [address] Holter Monitor Social History Tobacco Use Types Packs/Day Years [...] on file documented as of this encounter Progress Notes * Rebecca Petersonician - 11/25/2024 10:17 AM CDT 30D BG [employer] OUT [id number] [place] [id number] documented in this encounter Plan of Treatment Upcoming Encounters Date Type Department Care Team (Late st Contact Info) Description 01/11/2025 11:00 AM HANDICAPPED TEACHER Office Visit [facility] [address] [facility] [address] [place] [address] Pat Chavez MD 3 [facility] [address] [place] [address] documented as of this encounter Visit Diagnoses Diagnosis SOB (shortness of breath) Shortness of breath documented in this encounter Additional Health Concerns Assessment Noted Time PHQ-9 Depression Total Score: 11 022 11:43 AM CDT documented as of this encounter Care Teams Teacher Tutor Relationship Specialty Start Date End Date Leigha Gomez FNP [address] [place] [address] PCP - General Nurse Practitioner Family 12/11/21 documented as of this encounter
[2024-11-26] VITALS (10 sets, daily range): BP systolic 97–120; BP diastolic 68–83; PULSE 57–86; RESP 10–16; TEMP 36.5–36.8; O2SAT 98–100
--- OUTSIDE RECORDS SUMMARY | 2024-11-26 05:48 | XMS_ITS | Clinical Summary ---
Author Organization [facility] Address [address] [place] [address] Care Team Providers Care Blood Bank Calendar Control Clerk Name Role Phone Familia Mariano MD Primary Care Provider [phone] Source Comments [facility],non-owned Affiliates and Associated Physician Practices is amultiple site organization consisting of ambulatory clinics and hospital sitesin [place], [place], [place] and [place]. This disclosure is being madepursuant to the Care Everywhere program and may not contain all information available regarding this patient. 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 Gender Identity Not on file Sexual Orientation Not on file Plan of Treatment Health Maintenance Due Date Last Done Comments LIPID TESTING 1981 MAMMOGRAM 1981 HIV SCREENING 1996 HEPATITIS C SCREENING 05/27/1999 DTAP/TDAP/TD VACCINES (1 - Tdap) 2000 HEPATITIS B VACCINE (1 of 3 - 19+ 3-dose series) 2000 HPV VACCINE (1 - 3-dose SCDM series) 2008 DEPRESSION SCREENING 03/10/2024 COVID-19 VACCINE (1 - 2023-2 5 season) 2024 INFLUENZA VACCINE (#1) 2024 ZOSTER VACCINE (1 of 2) 06/01/2031 HIB VACCINE Aged Out No longer eligi ble based on patient's age to complete this topic MENINGOCOCCAL (Group B) VACC INE SHARED DECISION-MAKING Aged Out No longer eligibl e based on patient's age to complete this topic MENINGOCOCCAL GROUPS A/C/Y/W VACCINE Aged Out No longer eligible b ased on patient's age to complete this topic PNEUMOCOCCAL VACCINE Aged Out No long er eligible based on patient's age to complete this topic Insurance [facility] Care Teams Blood Bank Calendar Control Clerk Relationship Specialty Start Date End Date Familia Mariano MD [address] [facility] [place] [address] [place] [address] PCP - General 10/30/15
--- OUTSIDE RECORDS SUMMARY | 2024-11-26 05:48 | XMS_ITS | Encounter Summary ---
Author Organization [facility] Address [address] [facility] 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 Gender Identity Not on file Sexual Orientation Not on file documented as of this encounter Plan of Treatment Not on file documented as of this encounter Procedures Procedure Name Priority Date/Time Associated Diagnosis Comments DERMATOPATHOLOGY Routine 07/25/2021 12:0 0 AM CDT documented in this encounter Results * DERMATOPATHOLOGY (07/25/2021 12:00 AM CDT) Case Report Dermatopathology Report Case: [id number] Authorizing Provider: Trae Hu MD Collected: 07/25/2021 12:00 AM Ordering Location: [facility] Received: 07/25/2021 04:22 PM Pathologist: Shayna Benz MD Specimen: Skin, left posterior shoulder 2 3:13 PM CDT DERMATOPATHOLOGY LABORATORY Final Diagnosis Specimen A. SKIN, left posterior shoulder: ACROCHORDON (SOFT FIBROMA, SKIN TAG) (L91.8) 2 3:13 PM CDT DERMATOPATHOLOGY LABORATORY at 1513 CDT Clinical History Irr nevus vs tag vs other. Path # [id number]. 2 3:13 PM CDT DERMATOPATHOLOGY LABORATORY Gross Description Specimen A: Received is one formalin filled container labeled with the patient's name and designated left posterior shoulder. The specimen consists of a shave biopsy measuring [id number], bisected. Jar 0. 2 3:13 PM CDT DERMATOPATHOLOGY LABORATORY Microscopic Description Specimen A. SKIN, left posterior shoulder: There is a gently folded epidermis surrounding a connective tissue core in which fat and collagen are intermingled. 2 3:13 PM CDT DERMATOPATHOLOGY LABORATORY Disclaimer An external and internal positive and negative controls are appropriate for the histochemical, immunohistochemical and immunofluorescence stain(s) in this case (if any), except where stated explicitly. The performance characteristics of the stain(s) cited in this report were developed and its performance characteristic determined by the Dermatopathology Laboratory at [facility], directed by Dr. Denise Bone. These tests need not be, and therefore are not, approved by the [place] Food and Drug Administration. The tests are used for clinical purposes. Billing Codes Specimen Charges Stain Charges 96246 1 2 3:13 PM CDT DERMATOPATHOLOGY LABORATORY Embedded Images 2 3:13 PM CDT DERMATOPATHOLOGY LABORATORY Pathology/Cytolog y TISSUE SPECIMEN FROM SKIN / Unknown 07/25/2021 07/25/2021 4:22 PM CDT us Trae Hu MD LAB - PATHOLOGY/CYTOLOGY ORDER SOLEDAD Final Result DERMATOPATHOLOGY LABORATORY [facility] - Department of Dermatology [facility] Medicine [address] [place] [address], [address] [place] [address], [facility] [phone] documented in this encounter Visit Diagnoses Not on filedocumented in this encounter Care Teams Builder'S Labourer Relationship Specialty Start Date End Date Familia Mariano MD [address] [address] PCP - General 10/30/15 documented as of this encounter
--- OUTSIDE RECORDS SUMMARY | 2024-11-26 05:48 | XMS_ITS | Encounter Summary ---
Author Organization [facility] Address [facility] [place] [address] Care Team Providers Care Physical Therapy Manager Name Role Phone Leigha Gomez Primary Care Provider [phone] Encounter Details Date Type Department Care Team (Late st Contact Info) Description 10/28/2024 Results Follow-Up [facility] Family & Internal Medicine [id number] [place] [address] Leigha Gomez FNP [address] [place], [place] [id number] XR CHEST PA+LAT, URINALYSIS AUTO DIP, FERRITIN, Additional followed-up results: 6 Social History Tobacco Use Types Packs/Day Years [...] as of this encounter Progress Notes * ABELINO Serrano - 11/02/2024 9:03 AM CDT Labs show that she has a slight elevation in her ferritin, which could be caused by inflammation- however, with her fatigue and slightly lower than normal iron binding, lets get her into hematology and they can do further testing and evaluation. She should continue a daily multiple vitamin and vitamin d 3 supplement daily. Other labs look good * ABELINO Serrano - 10/28/2024 4:25 PM CDT Cxr was normal with no acute findings. documented in this encounter Plan of Treatment Upcoming Encounters Date Type Department Care Team (Late st Contact Info) Description 01/11/2025 11:00 AM PRESIDENT [facility]UCATIONAL [facility]UTION Office Visit [facility], [address] [address] Pat Chavez MD 3 [facility] [address] [place] [address] documented as of this encounter Visit Diagnoses Not on filedocumented in this encounter Additional Health Concerns Assessment Noted Time PHQ-9 Depression Total Score: 11 022 11:43 AM CDT documented as of this encounter Care Teams Physical Therapy Manager Relationship Specialty Start Date End Date Leigha Gomez FNP [address] [place] [phone] PCP - General Nurse Practitioner Family 12/11/21 documented as of this encounter
--- OUTSIDE RECORDS SUMMARY | 2024-11-26 05:48 | XMS_ITS | Encounter Summary ---
Author Organization [facility] Address [address] [place] [address] Care Team Providers Care Metal Container Maker Name Role Phone Leigha Gomez Primary Care Provider Encounter Details Date Type Department Care Team (Late st Contact Info) Description 11/24/2023 MyChart Message Enc [facility] Medical Group Family & Internal Medicine [id number] [place] [address] Leigha Gomez FNP [address] [place], [place] [phone] Mammogram Social History Tobacco Use Types Packs/Day Years Used Date Smoking Tobacco: Former Cigarettes Q uit: 10/08/2000 Smokeless Tobacco: Never Alcohol Use Standard Drinks/Week Comments Yes 0 (1 standard drink = 0.6 oz [...] st Contact Info) Description 01/11/2025 11:00 AM 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
--- OUTSIDE RECORDS SUMMARY | 2024-11-26 05:48 | XMS_ITS | Encounter Summary ---
Author Organization [facility] Address [address] [place] [address] Care Team Providers Care Textile Designer Name Role Phone Leigha Gomez Primary Care Provider [phone] Encounter Details Date Type Department Care Team (Late st Contact Info) Description 09/27/2024 MyChart Message Enc [facility] Medical Group Family & Internal Medicine [address] [place] [address] Leigha Gomez FNP [address] [place], [place] [phone] Hip Social History Tobacco Use Types Packs/Day Years [...] Encounters Date Type Department Care Team (Late Contact Info) Description 01/11/2025 11:00 AM 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
--- OUTSIDE RECORDS SUMMARY | 2024-11-26 05:48 | XMS_ITS | Clinical Summary ---
Author Organization [facility] Address [address] [place] [address] Care Team Providers Care Delinquency Counselor Name Role Phone Donovan Garza ABELINO Primary Care Provider [phone] Allergies Active Allergy Reactions Criticality Noted Date Comments Doxycycline Hives Medium 12/11/2021 Medications acyclovir (ZOVIRAX) 200 mg capsuleIndicati ons:Recurrent cold sores TAKE 4 CAPSULES BY MOUTH TWICE A DAY 80 capsule 3 5 Active oxybutynin XL (DITROPAN-XL) 5 MG 24 hr tabletIndicatio ns:Overactive bladder Take 1 tablet (5 mg total) by mouth daily. 90 tablet 3 5 Active methocarbamol (ROBAXIN) 750 MG TabIndications: Chronic right shoulder pain Take 1-2 tablets (750-1,500 mg total) by mouth 3 (three) times daily as needed. 90 tablet 3 10/29/19 25 Discontinu ed(Therapy completed) tirzepatide (MOUNJARO) 7.5 MG/0.5ML injectionIndica tions:Weight Loss Inject 7.5 mg into the skin once a week. 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 [address] [address] Kin Wagner MD Holter Monitor 11/25/2024 10:00 AM CDT Hospital Encounter [facility] [place] [address] Kin Wagner MD Arrived 11/24/2024 2:23 PM CDT - 11/24/2024 11:59 PM CDT Hospital Encounter [facility] [place] [address] Donovan Garza FNP Arrived Discharge Disposition: Home or Self Care (Routine Discharge) 11/24/2024 Travel 11/22/2024 Telephone [facility], [address] [address] Kin Wagner MD Schedule Test 11/18/2024 Telephone [facility] [address] [address] Pat Mcfarlane MD Holter Monitor 11/11/2024 1:00 PM CDT Office Visit [facility] [address] [address] Pat Mcfarlane MD Chest Pain (New Consult ); Syncope; Shortness Of Breath 11/11/2024 Travel 11/09/2024 2:34 PM CDT - 11/09/2024 11:59 PM CDT Hospital Encounter [facility] [address] [place] [address] Donovan Garza FNP Discharge Disposition: Home or Self Care (Routine Discharge) 11/09/2024 Travel 11/09/2024 Results Follow-Up [facility] Internal [address] [address] Donovan Garza FNP HIV 1 ANTIGEN(S), WITH HIV-1 AND HIV-2 ANTIBODIES, FERRITIN, CBC W/DIFF AUTOMATED, Additional followed-up results: 8 11/02/2024 2:20 PM CDT - 11/02/2024 11:59 PM CDT Hospital Encounter [facility] [place] [address] Donovan Garza FNP Discharge Disposition: Home or Self Care (Routine Discharge) 11/02/2024 Travel 11/02/2024 Orders Only [address] [address] Donovan Garza FNP 10/28/2024 2:00 PM CDT Office Visit [address] [address] Donovan Garza FNP Hip Pain (Right hip pain x 5 months. 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 ); Menstrual Problem (Pt states it has been years since LMP d/t ablation. Approx 2 months ago she had a 2-day period, light, pink and mucusy./) 10/28/2024 - 10/28/2024 11:59 PM CDT Hospital Encounter [facility] [address] [place] [address] Donovan Garza FNP Discharge Disposition: Home or Self Care (Routine Discharge) 10/28/2024 Results Follow-Up [facility] Internal [address] [address] Donovan Garza FNP XR CHEST PA+LAT, URINALYSIS AUTO DIP, FERRITIN, Additional followed-up results: 6 10/28/2024 Travel 10/27/2024 [employer] [facility] [address] [address] Donovan Garza FNP Obgyn 10/21/2024 [employer] INFO SRVCS Scanned, [facility] (SCAN); Pathology (SCAN) 09/27/2024 [employer] Message Enc [address] [address] Donovan Garza FNP Hip from Last 3 Months Immunizations Immunization Administration Dates Next Due Hepatitis A (Havrix [address]) 01/07/2013 Tdap (Adacel) 12/11/2021 Family History Medical History Relation Comments CABG Father Colon Cancer Father Diabetes Father Lung Disease Father [place] Father Rectal cancer Father Atrial fibrillation Mother Diabetes Mother Lung Cancer Mother Uterine Cancer Other Atrial fibrillation Sister Relation Status Comments Father Mother Other cousin Sister Social History Tobacco Use Types Packs/Day Years Used Date Smoking Tobacco: Former Cigarettes Q uit: 10/08/2000 Smokeless Tobacco: Never Tobacco Cessation:Counseling Given: Yes Alcohol Use Standard Drinks/Week Comments Not Currently 0 (1 standard drink = 0.6 oz pur e alcohol) PHQ-2 Answer Date Recorded Patient Health Questionnaire-2 Score 0 12/30/2022 Comments No Sex and Gender Information Value Date Recorded Sex Assigned at Female 10/28/2024 2:10 PM CDT Legal Sex Female 9:11 AM CDT Gender Identity Female 12/08/2021 9:19 AM CDT Sexual Orientation Not on file Last Filed Vital Signs Vital Sign Reading Time Taken Comments Blood Pressure 120/78 11/11/2024 12:49 PM CDT Pulse 84 11/11/2024 12:49 PM CDT Temperature 36.9 C (98.4 F) 10/28/2024 2:10 PM CDT Respiratory Rate 16 10/28/2024 2:10 PM CDT Oxygen Saturation 100% 11/11/2024 12:49 PM CDT Inhaled Oxygen Concentration - - Weight 81.6 kg (180 lb) 11/11/2024 12:49 PM CDT Height 167.6 cm (5' 6) 11/11/2024 12:49 PM CDT Body Mass Index 29.05 11/11/2024 12:49 PM CDT Plan of Treatment Upcoming Encounters Date Type Department Care Team (Late st Contact Info) Description 01/11/2025 11:00 AM 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 Office Visit [facility] [place] [address] [place] [phone] Pat Mcfarlane MD 3 [facility] [address] [facility] [place], [place] [id number] Health Maintenance Due Date Last Done Comments Cervical Cancer Screening Pap Smear (Age 30 to 64) Every 3 Years 1981 Annual Physical 1984 Hepatitis B Vaccines (1 of 3 - 19+ 3-dose series) 2000 HPV Vaccines (1 - 3-dose SCDM series) 2008 PHQ-2 (Physician [place]) 03/10/2024 12/30/2022 COVID-19 Vaccine ( season) 2024 Mammogram Screening 11/23/2025 11/24/2023, 12/12/2022, 12/12/2022, Additional history exists Cervical Cancer Screening Pap with HPV Testing (Age 30 to 64) Every 5 Years 10/21/2029 10/21/2024, 10/09/2023, 02/24/2023, Additional history exists Cervical Cancer Screening with HPV 10/21/2029 DTaP, Tdap and Td Vaccines (2 - Td or Tdap) 12/12/2031 12/11/2021 Hepatitis C Completed 12/13/2021 Meningococcal B Vaccine Aged Out No l onger eligible based on patient's age to complete this topic Meningococcal Vaccine Aged Out No josesito josse eligible based on patient's age to complete this topic Pneumococcal Vaccine: Pediatrics (0 to 5 Years) and At-Risk Patients (6 to 49 Years) Aged Out No longer eligible based on patient's age to complete this topic RSV Immunizations Under 20 Months Aged Out No longer eligible based on patient's age to complete this topic Procedures Procedure Name Priority Date/Time Associated Diagnosis Comments ELECTROCARDIOGRAM (NON MIDMARK ACQUIRED) Routine 11/11/2024 1:10 PM CDT Atrial fibrillation, unspecified type ([facility] CT ABD+PEL WO CON JUMA 11/09/2024 3:2 9 PM CDT Generalized abdominal pain Abdominal bloating Pelvic pain Bilateral hip pain Family history of ovarian cancer LUPUS ANTICOAGULANT EVAL W/RFX Routine 11/02/2024 2:32 PM CDT Elevated ferritin Chronic fatigue Polyarthralgia ENA2 (SSA & SSB) Routine 11/02/2024 2:32 PM CDT Elevated ferritin Chronic fatigue Polyarthralgia SYPHILIS AB (DIAGNOSTIC) WITH CASCADING REFLEX Routine 11/02/2024 2:32 PM CDT Elevated ferritin Chronic fatigue Polyarthralgia LYME DISEASE ANTIBODY Routine 11/02/2024 2:32 PM CDT Elevated ferritin Chronic fatigue Polyarthralgia RHEUMATOID FACTOR, QUANT Routine 025 2:32 PM CDT Elevated ferritin Chronic fatigue Polyarthralgia CYCLIC CITRULLINATED PEPTIDE (CCP)ANTIBODY(IGG) Routine 11/02/2024 2:32 PM CDT Elevated ferritin Chronic fatigue Polyarthralgia ANTINUCLEAR ANTIBODY WI RFX Routine 11/02/2024 2:32 PM CDT Elevated ferritin Chronic fatigue Polyarthralgia CBC W/DIFF AUTOMATED Routine 11/02/2024 2:32 PM CDT Elevated ferritin Chronic fatigue Polyarthralgia FERRITIN Routine 11/02/2024 2:32 PM CDT Elevated ferritin HIV 1 ANTIGEN(S), WITH HIV-1 AND HIV-2 ANTIBODIES Routine 11/02/2024 2:32 PM CDT Elevated ferritin Chronic fatigue Polyarthralgia CBC W/DIFF AUTOMATED Routine 10/28/2024 4:26 PM CDT Adult BMI 28.0-28.9 kg/sq m Syncope, unspecified syncope type Chronic fatigue THYROID STIM HORMONE TSH Routine 025 4:26 PM CDT Adult BMI 28.0-28.9 kg/sq m Syncope, unspecified syncope type Chronic fatigue COMPREHENSIVE METABOLIC PANEL Routine 10/28/2024 4:26 PM CDT Adult BMI 28.0-28.9 kg/sq m Syncope, unspecified syncope type Chronic fatigue THYROXINE, FREE (FT4) Routine 10/28/2024 4:26 PM CDT Adult BMI 28.0-28.9 kg/sq m Syncope, unspecified syncope type Chronic fatigue FREE T3 Routine 10/28/2024 4:26 PM CDT Adult BMI 28.0-28.9 kg/sq m Syncope, unspecified syncope type Chronic fatigue THYROID PEROXIDASE ANTIBODY Routine 10/28/2024 4:26 PM CDT Adult BMI 28.0-28.9 kg/sq m Syncope, unspecified syncope type Chronic fatigue IRON SAT PANEL (IRON,IBC,%SAT) Routine 10/28/2024 4:26 PM CDT Adult BMI 28.0-28.9 kg/sq m Syncope, unspecified syncope type Chronic fatigue FERRITIN Routine 10/28/2024 4:26 PM CDT Adult BMI 28.0-28.9 kg/sq m Syncope, unspecified syncope type Chronic fatigue XR CHEST PA+LAT Routine 10/28/2024 2:55 PM CDT Other chest pain SOB (shortness of breath) COLLECTION VENOUS BLOOD VENIPUNCTURE Routine 10/28/2024 2:34 PM CDT Adult BMI 28.0-28.9 kg/sq m Syncope, unspecified syncope type Chronic fatigue URINALYSIS AUTO DIP Routine 10/28/2024 Urinary frequency OUTSIDE CYTOPATH CERV/VAG INTERPRET (PAP) 10/21/2024 OUTSIDE LAB (SCAN ORDER) 10/21/2024 MAMMOGRAM GENERIC (SCAN ORDER) 11/24/2023 HEPATITIS C ANTIBODY Routine 12/13/2021 10:00 AM CDT Encounter for hepatitis C screening test for low risk patient from Last 3 Months or Most Recently Relevant to Health Maintenance Results * ELECTROCARDIOGRAM (11/11/2024 1:10 PM CDT) 11/11/2024 1:10 PM CDT Narrative [facility] - 11/11/2024 1:15 PM CDT [facility] Test Date: 2024-11-11 Pat Name: JULIANNE SALGADO Department: 112 Room: Gender: Female 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: : 1980 Requested By: PAT MCFARLANE Order Number: [id number] Reading MD: Pat Mcfarlane Measurements Intervals [place] Rate: 80 P: 36 WV: 141 QRS: -30 QRSD: 94 T: 51 QT: 348 QTc: 402 Interpretive Statements SINUS RHYTHM BORDERLINE LEFT AXIS DEVIATION LOW QRS VOLTAGE IN PRECORDIAL LEADS Procedure Note Pat Mcfarlane MD - 11/11/2024 [facility], [facility] Test Date: 2024-11-11 Pat Name: JULIANNE PRAJAPATIKIERSTEN Department: 112 Room: Gender: Female 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 Asymmetric appearance to the ovaries, more prominent on the left side. Although this is not definitely enlarged, asymmetry is somewhat unusual and ultrasound may better evaluate the ovaries. 2. Focal hypoattenuating area in the uterus which could also be evaluated by ultrasound. 3. Possible mild retroperitoneal lymphadenopathy versus vascular lesion. Contrast CT scan may better evaluate this finding. 4. Additional findings as described above. Ordered By: DONOVAN GARZA Interpreted By: Олег Patricio MD, 11/09/2024 4:29 PM Narrative 11/09/2024 4:50 PM CDT [address] [address] EXAMINATION: CT Abdomen and Pelvis without contrast EXAM DATE/TIME: 11/09/2024 3:20 PM REASON FOR EXAM: abdominal/pelvic pain and bloating, family hx of ovarian cancer COMPARISON: None TECHNIQUE: Axial CT images of the abdomen and pelvis are obtained without the use of IV contrast agent. Subsequent coronal and sagittal reformatted sequences are created for evaluation. A dose lowering technique was used for this procedure, which may include, but is not limited to, dose reduction technique, automated exposure control, the use of iterative reconstruction, and ALARA (As Low As Reasonably Achievable) / Image Gently techniques. FINDINGS: The ovaries are somewhat asymmetric. The left ovary measures 3.6 x 2.9 cm. This is not particularly enlarged. However, The right ovary is difficult to discretely visualized possibly due to diminutive size. The left ovary is slightly heterogeneous in density. No definite adjacent fluid or inflammatory changes are seen. No ascites is noted. 0.8 x 1.3 cm hypoattenuating area in the left uterus focally is noted such as on image 117 of axial series 2. Mild to moderate colonic stool is seen. No definite colonic obstruction, colitis or acute diverticulitis is seen. No small bowel dilatation is present. Lung Bases: No pleural effusions or consolidations. Liver:Unremarkable. Gallbladder and Biliary system:No CT evidence of cholelithiasis. No biliary ductal dilatation. Pancreas:Unremarkable. Spleen:No splenomegaly. Kidneys:Unremarkable. Ureters and bladder: Unremarkable Adrenals:Normal. Bowel:In addition to findings described above, the stomach is somewhat distended. Appearance is nonspecific. The duodenum is unremarkable as is the distal esophagus.The appendix is visualized and is within normal limits. Aorta and Retroperitoneum:Minimal lymphadenopathy in the left periaortic region is possible with 1 cm structure seen. This alternatively could be vascular or other etiology. Aorta is not aneurysmal. Pelvic Organs:As described above Bone/Musculoskeletal: No aggressive osseous lesions. Ascites: None Additional Findings: No evidence of ventral or inguinal hernia seen. Bilateral breast prosthesis are incompletely visualized. Subcutaneous nodule in the right chest such as on image #1 measures 7 mm and is nonspecific. Procedure Note Олег Patricio MD - 11/09/2024 [place] [address] [place] [address] EXAMINATION: CT Abdomen and Pelvis without contrast EXAM DATE/TIME: 11/09/2024 3:20 PM REASON FOR EXAM: abdominal/pelvic pain and bloating, family hx of ovariancancer COMPARISON: None TECHNIQUE: Axial CT images of the abdomen and pelvis are obtained withoutthe use of IV contrast agent. Subsequent coronal and sagittal reformattedsequences are created for evaluation. A dose lowering technique was usedfor this procedure, which may include, but is not limited to, dosereduction technique, automated exposure control, the use of iterativereconstruction, and ALARA (As Low As Reasonably Achievable) / Image Gentlytechniques. FINDINGS: The ovaries are somewhat asymmetric. The left ovary measures3.6 x 2.9 cm. This is not particularly enlarged. However, The right ovaryis difficult to discretely visualized possibly due to diminutive size. Theleft ovary is slightly heterogeneous in density. No definite adjacentfluid or inflammatory changes are seen. No ascites is noted. 0.8 x 1.3 cm hypoattenuating area in the left uterus focally is noted suchas on image 117 of axial series 2. Mild to moderate colonic stool is seen. No definite colonic obstruction,colitis or acute diverticulitis is seen. No small bowel dilatation ispresent. Lung Bases: No pleural effusions or consolidations. Liver:Unremarkable. Gallbladder and Biliary system:No CT evidence of cholelithiasis. Nobiliary ductal dilatation. Pancreas:Unremarkable. Spleen:No splenomegaly. Kidneys:Unremarkable. Ureters and bladder: Unremarkable Adrenals:Normal. Bowel:In addition to findings described above, the stomach is somewhatdistended. Appearance is nonspecific. The duodenum is unremarkable as isthe distal esophagus.The appendix is visualized and is within normallimits. Aorta and Retroperitoneum:Minimal lymphadenopathy in the left periaorticregion is possible with 1 cm structure seen. This alternatively could bevascular or other etiology. Aorta is not aneurysmal. Pelvic Organs:As described above Bone/Musculoskeletal: No aggressive osseous lesions. Ascites: None Additional Findings: No evidence of ventral or inguinal hernia seen.Bilateral breast prosthesis are incompletely visualized. Subcutaneousnodule in the right chest such as on image #1 measures 7 mm and isnonspecific. =====IMPRESSION:===== 1. Asymmetric appearance to the ovaries, more prominent on the left side.Although this is not definitely enlarged, asymmetry is somewhat unusualand ultrasound may better evaluate the ovaries. 2. Focal hypoattenuating area in the uterus which could also be evaluatedby ultrasound. 3. Possible mild retroperitoneal lymphadenopathy versus vascular lesion.Contrast CT scan may better evaluate this finding. 4. Additional findings as described above. Ordered By: DONOVAN GARZA Interpreted By: Олег Patricio MD, 11/09/2024 4:29 PM Donovan [employer] [facility] CT Final Result * LUPUS ANTICOAGULANT EVAL W/RFX (11/02/2024 2:32 PM CDT) Pathologist [facility] LUPUS ANTICOAGULANT REPORT 11/05/2024 4:23 AM CDT [facility]ILVINAPK [facility] Comment: A Lupus Anticoagulant is not detected. Reference Range: Not Detected For additional information, please refer to http://education.Ininal/faq/DFA73w5 (This link is being provided for informational/ educational purposes only.) This interpretation is based on the following test results. PTT (LUPUS ANTICOAGULANT) 30 <=40 sec 11/05/2024 4:23 AM CDT [facility] DANYELLE [facility] Comment: Test Performed by Beverly Gaona, [employer] [facility], [address] [place] [address] Ha Irvin M.D., Ph.D., Director of Laboratories , [facility] [id number] DRVVT SCREEN 38 <=45 sec 11/05/2024 4:23 AM CDT [facility] RODRIGUEZSHELLEY [facility] 11/02/2024 2:32 PM CDT Donovan [facility] Final Result [facility] [address] [address], * SYPHILIS AB (DIAGNOSTIC) WITH CASCADING REFLEX (11/02/2024 2:32 PM CDT) Pathologist [facility] SYPHILIS IGG IGM AB NON-REACTI VE NON-REACTI VE 11/02/2024 3:29 PM CDT [facility] Comment: No serologic evidence of syphilis. No follow-up necessary unless clinically indicated. 11/02/2024 2:32 PM CDT us Donovan Kilzer [facility] Final Result Performing Organization Address City/[facility] Co de Phone Number [facility] [address] [place] [address], * HIV 1 ANTIGEN(S), WITH HIV-1 AND HIV-2 ANTIBODIES (11/02/2024 2:32 PM CDT) HIV 1/2 AB+ HIV1 P24 AG NON-REACTI VE NON-REACTI VE 11/02/2024 3:58 PM CDT [facility] 11/02/2024 2:32 PM CDT [facility] Final Result Performing Organization Address [facility] Co de Phone Number [facility] [address] [place] [address], [place] [phone] * ANTINUCLEAR ANTIBODY WI RFX (WILY) (11/02/2024 2:32 PM CDT) WILY <0.09 11/03/2024 11:51 AM CDT [facility] Comment: NEGATIVE: <0.7 RATIO WILY PROFILE AND TITER NOT PERFORMED THE WILY SCREEN TESTS FOR THE FOLLOWING ANTIBODIES BY EIA: SSA1 (RO), SSB1 (LA), CORDOVA, SCL70, JO1, CENTROMERE, CANE FLUME FEEDING MACHINE OPERATOR HISTONE MUST BE ORDERED SEPARATELY DNA (DS) ANTIBODY 1.2 IU/ML 025 11:51 AM CDT [facility] Comment: NEGATIVE: <10 IU/mL EQUIVOCAL: 10 to 15 IU/mL POSITIVE: >15 IU/mL THIS QUANTITATIVE ASSAY IS CALIBRATED TO THE [employer]'S WO/80 STANDARD. THE LEVEL OF dsDNA AUTOANTIBODY GERERALLY CORRELATES WITH THE LEVEL OF DISEASE ACTIVITY IN SYSTEMIC LUPUS ERYTHMATOSUS 11/02/2024 2:32 PM CDT [facility] Final Result [facility] [address] [place] [address], [place] [phone] [id number] * RHEUMATOID FACTOR, QUANT (11/02/2024 2:32 PM CDT) RHEUMATOID FACTOR <10 <15 IU/ML 11/02/2024 3:09 PM CDT [facility] 11/02/2024 2:[address] [facility] Final Result Performing Organization Address City/[facility]/ZIP Co de Phone Number [facility] [address] [place] [address], [place] [phone] * CYCLIC CITRULLINATED PEPTIDE (CCP)ANTIBODY(IGG) (11/02/2024 2:32 PM CDT) CITRULLINE PEPTIDE ANTIBODY <16 <20 Units 11/07/2024 11:12 AM CDT [facility] Comment: Negative: <20 Weak Positive: 20 - 39 Moderate Positive: 40 - 59 Strong Positive: >59 Test Performed by Beverly Gaona, [employer] [facility], [address] [place] [address] Ha Irvin M.D., Ph.D., Director of Laboratories , [facility] [id number] 11/02/2024 2:32 [address] Donovan Garza [facility] Final Result [facility] WILMA [address] [place] [id number], [place] [phone] * ENA2 (SSA & SSB) (11/02/2024 2:32 PM CDT) SSA ANTIBODY <1.0 11/04/2024 8:40 AM CDT [facility] RODRIGUEZTERRIPK [facility] Comment: Reference Range: < 1.0 NEG AI SSB ANTIBODY <1.0 11/04/2024 8:40 AM CDT [facility] Comment: Reference Range: < 1.0 NEG AI Test Performed by [employer], [employer] [facility], [address] [place], [place] Ha Irvin M.D., Ph.D., Director of Laboratories , [place] [id number] 11/02/2024 2:32 [address] Donovan Garza [facility] Final Result [facility] [place] [id number] [place], [place] , * LYME DISEASE ANTIBODY (11/02/2024 2:32 PM CDT) Pathologist [facility] LYME IGG/IGM <0.90 <0.90 Index 11/04/2024 7:49 PM CDT [facility] RODRIGUEZSHANEPK TORRES Comment: Reference ranges: Index Interpretation ----- <0.90 Negative 0.90-1.09 Equivocal >1.09 Positive As recommended by the Food and Drug Administration (FDA), all samples with positive or equivocal results in a Borrelia burgdorferi antibody screen will be tested using a blot method. Positive or equivocal screening test results should not be interpreted as truly positive until verified as such using a supplemental assay (e.g., B. burgdorferi blot). The screening test and/or blot for B. burgdorferi antibodies may be falsely negative in early stages of Lyme disease, including the period when erythema migrans is apparent. The Code of [employer], Article 1 of Chapter 5 of Title 32.1, section 32.1-137.06, requires that the following language must be included on every Lyme disease test report issued by a [place] laboratory: Patients undergoing a Lyme disease test should be aware that Lyme disease tests vary and may produce results that are inaccurate. This means a patient may not be able to rely on a positive or negative result. Health care providers are encouraged to discuss Lyme disease test results with the patient for whom the test was ordered. Test Performed by Beverly Gaona, [employer] [facility], [address] [place], [place] Ha Irvin M.D., Ph.D., Director of Laboratories , [facility] [id number] 11/02/2024 2:32 PM [address] Donovan Gar[facility] [facility] Final Result [facility] [id number] [place], [place] , * (ABNORMAL) CBC W/DIFF AUTOMATED (11/02/2024 2:32 PM CDT) Only the most recent of2 resultswithin the time period is included. WBC 7.59 4.5 - 11.0 x10'3/uL 11/02/2024 2:50 PM CDT [facility] RBC 4.15(L) 4.20 - 5.40 x10'6/uL 11/02/2024 2:50 PM CDT [facility] HGB 13.3 12.0 - 16.0 G/DL 11/02/2024 2:50 PM CDT [facility] HCT 39.1 38.0 - 48.0 % 11/02/2024 2:50 PM CDT [facility] MCV 94.2 81.0 - 99.0 FL 11/02/2024 2:50 PM CDT [facility] MCH 32.0(H) 27.0 - 31.0 PG 11/02/2024 2:50 PM CDT [facility] MCHC 34.0 32.0 - 36.0 G/DL 11/02/2024 2:50 PM CDT [facility] RDW 12.7 11.5 - 14.5 % 11/02/2024 2:50 PM CDT [facility] PLT 268 130 - 400 x10'3/uL 11/02/2024 2:50 PM CDT [facility] MPV 11.6 9.3 - 12.2 FL 11/02/2024 2:50 PM CDT [facility] DIFFERENTIAL TYPE AUTOMATED DIFFERENTIAL 11/02/2024 2:50 PM CDT [facility] NEUTROPHILS % 55.1 % 11/02/2024 2:50 PM CDT [facility] LYMPHOCYTES % 34.5 % 11/02/2024 2:50 PM CDT [facility] MONOCYTES % 7.8 % 11/02/2024 2:50 PM CDT [facility] EOSINOPHILS 1.4 % 11/02/2024 2:50 PM CDT [facility] BASOPHILS 0.5 % 11/02/2024 2:50 PM CDT [facility] IMMATURE GRANS % 0.7 % 11/03/19 2:50 PM CDT [facility] ABS. NEUTROPHILS 4.18 1.80 - 7.70 x10'3/uL 11/02/2024 2:50 PM CDT [facility] ABS. LYMPHOCYTES 2.62 1.00 - 4.80 x10'3/uL 11/02/2024 2:50 PM CDT [facility] ABS. MONOCYTES 0.59 0.24 - 0.86 x10'3/uL 11/02/2024 2:50 PM CDT [facility] ABS. EOSINOPHILS 0.11 0.04 - 0.36 x10'3/uL 11/02/2024 2:50 PM CDT [facility] ABS. BASOPHILS 0.04 0.01 - 0.08 x10'3/uL 11/02/2024 2:50 PM CDT [facility] ABS. IMMATURE GRANULOCYTES 0.05 0.00 - 0.49 x10'3/uL 11/02/2024 2:50 PM CDT [facility] 11/02/2024 2:[address] [facility] Final Result [facility] [address] [place] [address], [place] [phone] * FERRITIN (11/02/2024 2:32 PM CDT) Only the most recent of2 resultswithin the time period is included. Pathologist [facility] FERRITIN 224.2 8.0 - 388.0 NG/ML 11/02/2024 3:13 PM CDT [facility] 11/02/2024 2:[address] [facility] Final Result [facility] [address] [place] [address], [place] [phone] * THYROID PEROXIDASE ANTIBODY (10/28/2024 4:26 PM CDT) THYROID PEROXIDASE MICROSOMAL AB <4 IU/ML 11/02/2024 11:34 AM CDT [facility] Comment: NEGATIVE: < 25 IU/ML EQUIVOCAL: 25 to 35 IU/ML POSITIVE: > 35 IU/ML 10/28/2024 4:[address] [facility] Final Result Performing Organization Address City/[facility]/ZIP Co de Phone Number [facility] [address] [place] [address], [phone] * (ABNORMAL) IRON SAT PANEL (IRON,IBC,%SAT) (10/28/2024 4:26 PM CDT) IRON 126 50 - 170 MCG/DL 10/29/2024 11:13 AM CDT [facility] IRON BINDING CAPACITY 241(L) 250 - 450 MCG/DL 10/29/2024 11:13 AM CDT [facility] IRON SATURATION 52 % 11:13 AM CDT [facility] Comment:REFERENCE RANGE NOT ESTABLISHED 10/28/2024 4:2 [address] [facility] Final Result Performing Organization Address [facility] Co de Phone Number [facility] [address] [place] [address], * FREE T3 (10/28/2024 4:26 PM CDT) FREE T3 2.5 2.2 - 3.9 PG/ML 10/28/2024 9:24 PM CDT [facility] 10/28/2024 4:[address] [facility] Final Result Performing Organization Address City/[facility] Co de Phone Number [facility] [address] [place] [address], [place] [phone] * COMPREHENSIVE METABOLIC PANEL (10/28/2024 4:26 PM CDT) SODIUM S/P/B 143 136 - 145 MMOL/L 10/29/2024 11:13 AM CDT [facility] POTASSIUM S/P/B 4.0 3.5 - 5.1 MMOL/L 10/29/2024 11:13 AM CDT [facility] CHLORIDE S/P/B 103 98 - 107 MMOL/L 10/29/2024 11:13 AM CDT [facility] CO2 28.6 21 - 32 MMOL/L 10/29/2024 11:13 AM CDT [facility] GLUCOSE 99 70 - 99 MG/DL 10/29/2024 11:13 AM CDT [facility] BUN 13 7 - 18 MG/DL 10/29/2024 11:13 AM CDT [facility] CREATININE S/P/B 0.62 0.55 - 1.02 MG/DL 10/29/2024 11:13 AM CDT [facility] CALCIUM S/P/B 9.1 8.4 - 10.5 MG/DL 10/29/2024 11:13 AM CDT [facility] BILIRUBIN TOTAL S/P/B 0.3 0.2 - 1.0 MG/DL 10/29/2024 11:13 AM CDT [facility] ALKALINE PHOSPHATASE S/P/B 71 37 - 98 U/L 10/29/2024 11:13 AM CDT [facility] AST 20 15 - 37 U/L 10/29/2024 11:13 AM CDT [facility] ALT 31 14 - 59 U/L 10/29/2024 11:13 AM CDT [facility] TOTAL PROTEIN S/P/B 7.0 6.4 - 8.2 G/DL 10/29/2024 11:13 AM CDT [facility] ALBUMIN S/P/B 3.7 3.4 - 5.0 G/DL 10/29/2024 11:13 AM CDT [facility] ANION GAP 11.4 5 - 15 MMOL/L 10/29/2024 11:13 AM CDT [facility] Comment:REFERENCE RANGE NOT ESTABLISHED OSMOLALITY (CALC) 296 MOSM/KG 025 11:13 AM CDT [facility] Comment:REFERENCE RANGE NOT ESTABLISHED GFR ESTIMATE >90 >90 ML/MIN/1. 73 M2 10/29/2024 11:13 AM CDT [facility] GFR NOTES GFR REFERENCE S: 10/29/2024 11:13 AM CDT [facility] Comment: THE ESTIMATED GFR IS CALCULATED USING THE 2020 CKD-EPI EQUATION. THE FOLLOWING CATEGORIES FOR GRADING RENAL FUNCTION ARE RECOMMENDED BY THE INTERNATIONAL SOCIETY OF NEPHROLOGY (KDIGO 2012 CLINICAL PRACTICE GUIDELINE). G1,NORMAL OR HIGH: >89 ml/min/1.73 m2 G2,MILDLY DECREASED: 60-89 ml/min/1.73 m2 G3A,MILDLY TO MODERATELY DECREASED: 45-59 ml/min/1.73 m2 G3B,MODERATELY TO SEVERELY DECREASED: 30-44 ml/min/1.73 m2 G4,SEVERELY DECREASED: 15-29 ml/min/1.73 m2 G5,KIDNEY FAILURE: <15 ml/min/1.73 m2 10/28/2024 4:26 PM [address] [facility] Final Result Performing Organization Address City/[facility]/ZIP Co de Phone Number [address] [address], * THYROXINE, FREE (FT4) (10/28/2024 4:26 PM CDT) FREE T4 0.79 0.76 - 1.46 NG/DL 10/29/2024 11:13 AM CDT [facility] 10/28/2024 4:[address] [facility] Final Result Performing Organization Address City/[facility]/ZIP Co de Phone Number [address] [place] [address], * THYROID STIM HORMONE TSH (10/28/2024 4:26 PM CDT) TSH 0.913 0.358 - 3.740 uIU/ML 10/29/2024 11:[address] [facility] 10/28/2024 4:[address] [facility] Final Result [facility] [address] [place] [address], * XR CHEST PA+LAT (10/28/2024 2:55 PM CDT) Anatomical Region Laterality Modality Chest Radiographic Joanna ging 10/28/2024 3:44 PM CDT Impressions 10/28/2024 3:44 PM CDT IMPRESSION: No acute findings Ordered By: DONOVAN GARZA Interpreted By: Everton Gómez MD, 10/28/2024 3:44 PM Narrative 10/28/2024 3:44 PM CDT [facility] [place] [address] 2 VIEWS OF THE CHEST Clinical history: Chest pain, shortness of breath Comparison: None 2 views of the chest demonstrate the cardiac silhouette to be normal in size and appearance. The pulmonary vessels appear normal. The Lungs are clear. No consolidations or effusions are seen. Procedure Note Everton Gómez MD - 10/28/2024 [facility] [place] [address] 2 VIEWS OF THE CHEST Clinical history: Chest pain, shortness of breath Comparison: None 2 views of the chest demonstrate the cardiac silhouette to be normal insize and appearance. The pulmonary vessels appear normal. The Lungs areclear. No consolidations or effusions are seen. IMPRESSION: No acute findings Ordered By: DONOVAN GARZA Interpreted By: Everton Gómez MD, 10/28/2024 3:[address] [facility] Final Result * (ABNORMAL) URINALYSIS AUTO DIP (10/28/2024) COLOR (U) YELLOW YELLOW [facility] TRANSPARENCY CLEAR [facility] GLUCOSE (U) NEGATIVE NEGATIVE MG/DL [facility] BILIRUBIN (U) NEGATIVE NEGATIVE [facility] [place] MG/DL (U) NEGATIVE NEGATIVE MG/DL [facility] SPECIFIC GRAVITY (U) 1.015 1.001 - 1.035 [facility] BLOOD (U) MODERATE (2+ Hemolyzed, About 50 rbc/uL)(A) NEGATIVE [facility] U PH 5.5 5.0 - 9.0 [facility] PROTEIN (U) NEGATIVE NEGATIVE mg/dL [facility] UROBILINOGEN 0.2 0.2 - 1.0 EU/dL = mg/dL [facility] NITRITES NEGATIVE NEGATIVE MG/DL [facility] LEUKOCYTES (U) NEGATIVE NEGATIVE [facility] URINE SPECIMEN OBTAINED BY CLEAN CATCH PROCEDURE / Unknown 10/28/[address] [facility] URINE ORDERABLES Final Result [facility] [address] [place] [address], * PAP SMEAR WITH HPV (10/21/2024) 10/21/2024 [facility] Scanned SCANNING Final Resu lt * OUTSIDE LAB (SCAN ORDER) (10/21/2024) 10/21/2024 [facility] Scanned SCANNING Final Resu lt * MAMMOGRAM GENERIC (SCAN ORDER) (11/24/2023) Anatomical Region Laterality Modality Other 11/24/2023 [facility] Scanned SCANNING Final Resu lt * HEPATITIS C AB ([facility] ONLY) (12/13/2021 10:00 AM CDT) HEPATITIS C AB NON-REACTI VE NON-REACT JOHANA 12/13/2021 7:12 PM CDT [facility] Comment: ANTIBODIES TO HCV NOT DETECTED. DOES NOT EXCLUDE THE POSSIBILITY OF EXPOSURE TO HCV. 12/13/2021 10:0 0 AM CDT Result [facility] Donovan [facility] Final Result [facility] [address] [place] [address], [phone] from Last 3 Months or Most Recently Relevant to Health Maintenance Insurance DONOHUE Care Teams Delinquency Counselor Relationship Specialty Start Date End Date Donovan Garza FNP [facility] [place] [address] PCP - General Nurse Practitioner Family 12/11/21
--- OUTSIDE RECORDS SUMMARY | 2024-11-26 05:48 | XMS_ITS | Encounter Summary ---
Author Organization [facility] Address [address] [place] [address] Care Team Providers Care Lead Java J2Ee Developer Name Role Phone Leigha Gomez Primary Care Provider [phone] Encounter Details Date Type Department Care Team (Late st Contact Info) Description 10/27/2024 MyCSPORTLOGiQt Message Enc [facility] Family & Internal Medicine [place] [id number] [place] [address] Leigha Gomez FNP [address] [place] [address] Obgyn Social History Tobacco Use Types Packs/Day Years [...] encounter Progress Notes * ABELINO Serrano - 10/28/2024 9:24 AM CDT Did we get her lab results? documented in this encounter Plan of Treatment Upcoming Encounters Date Type Department Care Team (Late st Contact Info) Description 01/11/2025 11:00 AM LINE MANAGER Office Visit [facility] [facility] [address] [place] [address] Pat Chavez MD [address] [facility] [place] [address] [place] [address] documented as of this encounter Visit Diagnoses Not on filedocumented in this encounter Additional Health Concerns Assessment Noted Time PHQ-9 Depression Total Score: 11 022 11:43 AM CDT documented as of this encounter Care Teams Lead Java J2Ee Developer Relationship Specialty Start Date End Date Leigha Gomez FNP [address] [place] [address] PCP - General Nurse Practitioner Family 12/11/21 documented as of this encounter
--- OUTSIDE RECORDS SUMMARY | 2024-11-26 05:48 | XMS_ITS | Encounter Summary ---
Author Organization [facility] Address [address] [place] [address] Care Team Providers Care Maintenance Truck Driver Name Role Phone Leigha Gomez Primary Care Provider [phone] Encounter Details Date Type Department Care Team (Late st Contact Info) Description 08/01/2022 MyChart Message Enc [facility] Medical Group Family & Internal Medicine [place] [id number] [place] [address] Leigha Gomez FNP [address] [place] [address] Antibiotics Social History Tobacco Use Types Packs/Day Years Used Date Smoking Tobacco: Former Cigarettes Q uit: 10/08/2000 Smokeless Tobacco: Never Alcohol Use Standard Drinks/Week Comments Yes 0 (1 standard drink = 0.6 oz pur e alcohol) PHQ-2 Answer Date Recorded PHQ-2 Score - If the patient scores above 3, please move on to questions 3-9 0 12/11/2021 Comments No Sex and Gender Information Value Date Recorded Sex Assigned at Female 10/28/2024 2:10 PM CDT Legal Sex Female 9:11 AM CDT Gender Identity Female 12/08/2021 9:19 AM CDT Sexual Orientation Not on file documented as of this encounter Progress Notes * Laisha Ortiz MA - 08/01/2022 10:25 AM CDTFrom: Julianne Salgado To: Leigha Gomez Sent: 08/01/2022 10:17 AM CDT Subject: Antibiotics Hey I believe I have the start of a yeast infection from all of these antibiotics I had a allergic reaction to amoxicillin and am now on clindamycin I got the tooth pulled yesterday they had to drainthe abscess as well anyways if you could call me on something for that I???d appreciate it thanks. documented in this encounter Plan of Treatment Upcoming Encounters Date Type Department Care Team (Late st Contact Info) Description 01/11/2025 11:00 AM PAINTER SET Office Visit [facility] [facility] [place] [address] [place] [address] Pat Chavez MD [address] [facility] [place] [address] [place] [address] documented as of this encounter Visit Diagnoses Diagnosis Antibiotic-induced yeast infection- Primary documented in this encounter Additional Health Concerns Assessment Noted Time PHQ-9 Depression Total Score: 11 022 11:43 AM CDT documented as of this encounter Care Teams Maintenance Truck Driver Relationship Specialty Start Date End Date Leigha Gomez FNP [address] [place] [address] PCP - General Nurse Practitioner Family 12/11/21 documented as of this encounter
--- OUTSIDE RECORDS SUMMARY | 2024-11-26 05:48 | XMS_ITS | Clinical Summary ---
Author Organization [facility] Address [address], [address] [address] Phone Care Team Providers Care Wood Window And Door Craftsman Name Role Phone Familia Mariano MD Primary Care Provider [phone] Chris Esparza DO Unavailable [phone] Allergies No known active allergies Medications [...] age to complete this topic Care Teams Wood Window And Door Craftsman Relationship Specialty Start Date End Date Familia Mariano MD [address] [place] [address] PCP - General Obstetrics & Gynecology 10/31/15 Chris Esparza DO [address] [place] [address] Gastroenterology 10/31/15
[2024-11-26] MEDS: LACTATED RINGERS 1,000 ML 30 ML IV CONT ×2 (06:30→08:00)
[2024-11-26] MEDS: ACETAMINOPHEN 500 MG TABLET 1000 MG PO (06:49)
[2024-11-26] MEDS: KETOROLAC 15 MG/ML VIAL (*BKC) IV PUSH (06:49)
--- NOTE | 2024-11-26 06:51 | WPDHPUPDATE1 ---
History and Physical Update Update Date/Time: 11/26/24 06:51 History and Physical has been reviewed, including an updated exam of the patient. There are NO changes in the patient's condition. Risks, benefits, and alternatives have been discussed and questions answered. Patient agrees to proceed with procedure.
--- NOTE | 2024-11-26 07:02 | P.PNAN_ITS ---
Anes - Initial Pre Proc Eval Procedure: Operation Date: 11/26/24 07:30 Proposed Procedures p Laparoscopy with Bilateral Ovarian Cystectomy - Олег Carr MD Date/Time: 11/26/24 07:02 Surgeon: Олег Carr MD Pre Op Diagnosis: megha ovarian cyst, pain Patient Data Age: 44 Gender: F Height: 1.68 m Weight: 81.4 kg Last Vital Signs Temp 98.1 F 11/26/24 06:53 Pulse 78 11/26/24 06:53 Resp 16 11/26/24 06:53 BP 115/82 11/26/24 06:53 Pulse Ox 100 11/26/24 06:53 O2 Del Method Room Air 11/26/24 06:53 Allergies Allergy/AdvReac Type Severity Reaction Status Date / Time doxycycline Allergy Unknown RASH Verified 11/16/24 12:30 Home Medications ?Medication ?Instructions ?Recorded ?Confirmed ?Type acyclovir 200 mg capsule 200 mg PO DAILY PRN cold sor es 11/16/24 11/17/24 History hydrocodone 5 mg-acetaminophen 325 1 tablet PO Q4H PRN pain #20 tabs 11/26/24 Rx mg tablet Patient hx anesthesia problems: post op nausea/vomiting Family hx anesthesia problems: none Results Review: All pre-operative results and documents have been reviewed as part of the pre- operative evaluation. [facility] Past Medical History Medical History No acute medical problems Surgical History Surgical History History of orthopedic surgery Social History Social History Smoking packs per day: 1.5 Smoking cigarettes per day: 30.0 Years smoked: 2 Smoking pack-years: 3.00 Smoking status: Former smoker Tobacco type: cigarettes Second hand tobacco smoke exposure: No Alcohol intake: current Substance use type: does not use Last use: 2000 Living arrangements: with family Gender identity (if verbalized by the patient): Female Anes - Eval Final PreProcedure Day of Procedure 11/26/24 07:02 Patient weight: normal Lungs: normal air movement Airway: Mallampati scale class II Neurological: alert and oriented Last oral intake: >/= 8 hours ASA classification: I Emergent: no Anesthetic plan: proceed Anesthesia type and monitoring: general ETT and standard monitoring Results Review: All pre-operative results and documents have been reviewed as part of the pre- operative evaluation. Overall good health, walks 1-2 fos, no cp or sob. Informed Consent: The patient's anesthetic plan and its attendant risks and benefits were discussed with the patient/family/POA. Questions were solicited and answers provided to the satisfaction of the patient/family/POA.
[2024-11-26] MEDS: SCOPOLAMINE 1 MG PATCH 1 PATCH TRANSDERM (07:05)
--- NOTE | 2024-11-26 07:50 | S_PTH ---
PATIENT: Julianne Salgado LOC: [facility] U#:[id number] AGE/SX: 44/F ROOM: RE11/26/[address]: Олег Carr MD : 1980 BED: DIS: 11/26/2024 SPEC #: [id number] RECD: 11/26/24 09:50 STATUS: RAPHAEL REQ #: [id number] CHRISTOPHER: 11/26/24 07:[address]: Олег Guzman DEPT: [facility] Surgical RECD BY: Dee Martinez ENTERED: 11/26/24 09:51 SP TYPE: Surgical OTHR DR: DONOVAN GARZA, [place] DIV[employer] DIRECTOR Tissues: A - Fallopian Tube Bilateral Procedures: Gross and Microscopic Level 2 Hematoxylin and Eosin Stain
--- NOTE | 2024-11-26 07:55 | P.OP_ITS ---
Procedure Note - Detailed Date of Procedure 11/26/24 Pre-op Diagnosis megha ovarian cyst, pain Post-op Diagnosis Other (Pelvic pain/hydrosalpinx/adhesions) Procedure Performed Laparoscopy with bilateral lysis adhesions Surgeon Олег Carr MD Anesthesia General Indications This is 4-year-old appeared to be cysts pain Findings Bilateral normal-appearing ovaries and salpinx. Adhesions Description of Procedure Patient sterile fashion placed in the dorsal lithotomy position. Under excellent general endotracheal anesthesia weighted speculum placed in posterior fornix of the anterior lip of the cervix grasped a single-tooth the Jones's cannula was inserted to the single-tooth to be used later manipulation bladder emptied of 5cc of clear urine the weighted speculum was removed. Gloves were changed. An infraumbilical incision made the Veress needle passed in the abdomen. Abdomen filled cyst filled with CO2 gas [id number]. The 5mm trocar advanced under the Optiview assuring no injury. Patient placed in Trendelenburg and suprasellar pubic incision made. 5mm trocar advanced under direct visualization assuring injury. A left lower quadrant incision made the 8mm trocar advanced under direct visualization. The findings consistent with bilateral hydrosalpinx. The adhesions were seen on the lateral sidewall and using the LigaSure these were sharply dissected there were noted to be 2 distinct and hydrosalpinx. Using the LigaSure these were serially cauterized placed in Endo- Catch and removed through the left lower sedation. Irrigation undertaken to clear. The appendix and liver and gallbladder all appeared within normal limits. The lower sites removed. The gas removed from the abdomen. The upper sites removed. Incisions closed with 4 Monocryl and glue. Patient was awakened recovery in satisfactory condition. All sponge, needle, instrument counts were correct. There were complications Estimated Blood Loss 5 Drains No Packing No Pathology Yes Complications No immediate complications Condition Stable Disposition PACU
[2024-11-26] MEDS: ONDANSETRON INJ 4 MG/2 ML VIAL IV PUSH (08:28)
[2024-11-26] MEDS: fentaNYL CITRATE INJ (*CRX) 100 MCG/2 ML VIAL 25 MCG IV PUSH ×2 (09:03→09:31)
[2024-11-26] MEDS: oxyCODONE HCL (*CRX) 5 MG TAB IR PO (09:51)
== END 2024-11-26 10:14 | disposition home or self-care (01) ==
PROVIDERS: PCP Nurse Practitioner Family; Visit Provider Obstetrics & Gynecology
PROC: (CPT 49320; principal; 2024-11-26 07:30)
DX: N70.11 Chronic salpingitis (principal); N83.8 Other noninflammatory disorders of ovary, fallopian tube and broad ligament; N73.6 Female pelvic peritoneal adhesions (postinfective); Z79.891 Long term (current) use of opiate analgesic; Z98.890 Other specified postprocedural states; Z87.891 Personal history of nicotine dependence
CPT/HCPCS: 58662; 88302; A9270; J1100; J1200; J1885; J2250; J2405; J2704; J3010; J7030; J7120